=== PATIENT | male | born 1960 | race African-American/Black ===

== ENCOUNTER 2018-11-13 11:36 | Inpatient (IN) | payer OTHER ==
[2018-11-13] VITALS (10 sets, daily range): BP systolic 115–179; BP diastolic 72–107
[~2018-11-13] VITALS: Ht 180.3 cm; Wt 68.9 kg
[2018-11-13] MEDS ORDERED: DiphenhydrAMINE 50mg/ml Inj IVP ONE (11:45)
[2018-11-13] MEDS ORDERED: Morphine Sulfate 4mg/ml Inj (IV USE ONLY) IVP ONE (11:45)
--- NOTE | 2018-11-13 11:55 | NUR ---
ED Nurse Note: PT TO CT VIA MARIANO.
--- NOTE | 2018-11-13 12:05 | NUR ---
Note karoone in EDM - 11/13/18 at 1453 by [facility] ED Nurse Note: PT BACK FROM CT VIA [facility]. PT BROUGHT IN TO ER TODAY FROM HOME. AOX4. PT C/O NAUSEA AND MULTIPLE EPISODES OF VOMITING ALONG WITH GENERALIZED BODY ACHE X THIS MORNING ABOUT 1 HOUR PRIOR TO ARRIVAL. PT DENIES DIARRHEA. ACTIVE BOWEL SOUNDS IN ALL QUADRANTS, ABDOMEN NONDISTENDED AND NONTENDER TO PALPATION.
--- NOTE | 2018-11-13 12:05 | NUR ---
ED Nurse Note: PT BACK FROM CT VIA GURNEY. PT BROUGHT IN TO ER TODAY FROM HOME. AOX4. PT C/O NAUSEA AND MULTIPLE EPISODES OF VOMITING ALONG WITH GENERALIZED BODY ACHE X THIS MORNING ABOUT 1 HOUR PRIOR TO ARRIVAL. PT DENIES DIARRHEA. ACTIVE BOWEL SOUNDS IN ALL QUADRANTS, ABDOMEN NONDISTENDED AND NONTENDER TO PALPATION. BP ELEVATED AT BEDSIDE: 179/90 - DR. MARCELO AWARE. PT DENIES SOB OR CHEST PAIN.
--- NOTE | 2018-11-13 12:06 | Emergency Room Report ---
History of Present Illness General Chief Complaint: Nausea Source: Patient, EMS (Chaim Bryan DO) Present Illness HPI Patient presents with complaints of mid chest pain increased nausea Reports that he has history of prostate cancer and taking oral chemotherapy medication He has been on his medication for over the past 1 year however Patient feels lightheaded and dizzy Reports feeling weak Denies any headache or visual changes On reevaluation after patient had some symptomatic improvement he does not report that he gets IV infusions of chemotherapy as well last chemo was about 7 days ago (Chaim Bryan DO) Allergies: Coded Allergies: No Known Allergies (Unverified , 11/13/18) Patient History Past Medical History: see triage record Reviewed Nursing Documentation: PMH: Agreed; PSxH: Agreed (Chaim Bryan DO) Nursing Documentation-PMH Past Medical History: No History, Except For Hx Hypertension: Yes Hx Cancer: Yes - prostate (Chaim Bryan DO) Review of Systems All Other Systems: negative except mentioned in HPI (Chaim Bryan DO) Physical Exam Vital Signs Date Time Temp Pulse Resp B/P (MAP) Pulse Ox O2 Delivery O2 Flow Rate FiO2 11/13/18 11:16 97.5 88 20 170/100 (123) 97 Room Air Sp02 EP Interpretation: reviewed, normal General Appearance: moderate distress - Nauseated and pain Head: normocephalic, atraumatic Eyes: bilateral eye PERRL, bilateral eye EOMI ENT: hearing grossly normal, normal pharynx, no angioedema Neck: supple Respiratory: lungs clear, no retraction, no accessory muscle use Cardiovascular #1: regular rate, rhythm Gastrointestinal: non tender, soft Musculoskeletal: normal inspection Neurologic: alert, oriented x3, responsive Psychiatric: normal inspection Skin: no rash, palpation normal Lymphatic: no adenopathy (Chaim Bryan DO) Procedures Critical Care Time Critical Care Time 50 minutes for multiple re-evaluations critical presentation with critical findings concerning for cardiac and cardiac pulmonary arrest not including any procedural time (Chaim Bryan DO) Medical Decision Making Diagnostic Impression: Primary Impression: Hypertensive urgency, malignant Additional Impressions: Chemotherapy adverse reaction Qualified Codes: T45.1X5A - Adverse effect of antineoplastic and immunosuppressive drugs, initial encounter Elevated troponin ER Course Patient is a fairly complex patient with multiple differential to consideration including but not limited to cardiac cardiopulmonary and vascular emergencies Other differential such as chemo reaction also entertained Patient's EKG is abnormal with incomplete right bundle branch block nonspecific ST changes LVH findings troponin is mildly elevated at 0.154 Given the patient's description and comorbidities I felt discussion with interventional cardiology was warranted [facility] was contacted In discussion patient was requested to have repeat troponin Repeat EKG and further evaluation of abnormal findings Patient's troponin has slowly started to decrease therefore transfer to tertiary center will be held at this time Patient's x-ray shows some abnormalities as well and patient requires continued inpatient care Labs Test 11/13/18 11:45 11/13/18 12:10 11/13/18 13:34 White Blood Count 10.9 K/UL (4.8-10.8) Red Blood Count 3.17 M/UL (4.70-6.10) Hemoglobin 10.1 G/DL (14.2-18.0) Hematocrit 32.7 % (42.0-52.0) Mean Corpuscular Volume 103 FL (80-99) Mean Corpuscular Hemoglobin 31.9 PG (27.0-31.0) Mean Corpuscular Hemoglobin Concent 31.0 G/DL (32.0-36.0) Red Cell Distribution Width 13.9 % (11.6-14.8) Platelet Count 214 K/UL (150-450) Mean Platelet Volume 10.8 FL (6.5-10.1) Neutrophils (%) (Auto) 81.0 % (45.0-75.0) Lymphocytes (%) (Auto) 13.6 % (20.0-45.0) Monocytes (%) (Auto) 4.5 % (1.0-10.0) Eosinophils (%) (Auto) 0.3 % (0.0-3.0) Basophils (%) (Auto) 0.6 % (0.0-2.0) Sodium Level 141 MMOL/L (136-145) Potassium Level 4.1 MMOL/L (3.5-5.1) Chloride Level 105 MMOL/L (98-107) Carbon Dioxide Level 28 MMOL/L (21-32) Anion Gap 8 mmol/L (5-15) Blood Urea Nitrogen 25 mg/dL (7-18) Creatinine 1.2 MG/DL (0.55-1.30) Estimat Glomerular Filtration Rate > 60 mL/min (>60) Glucose Level 182 MG/DL (74-106) Calcium Level 9.1 MG/DL (8.5-10.1) Total Bilirubin 1.4 MG/DL (0.2-1.0) Direct Bilirubin 0.4 MG/DL (0.0-0.3) Aspartate Amino Transf (AST/SGOT) 43 U/L (15-37) Alanine Aminotransferase (ALT/SGPT) 42 U/L (12-78) Alkaline Phosphatase 144 U/L (46-116) Total Creatine Kinase 276 U/L (26-308) Creatine Kinase MB 2.8 NG/ML (0.0-3.6) Creatine Kinase MB Relative Index 1.0 Troponin I 0.154 ng/mL (0.000-0.056) Total Protein 7.7 G/DL (6.4-8.2) Albumin 4.1 G/DL (3.4-5.0) Globulin 3.6 g/dL Albumin/Globulin Ratio 1.1 (1.0-2.7) Lipase 170 U/L (73-393) Urine Color Yellow Urine Appearance Clear Urine pH 8 (4.5-8.0) Urine Specific [place] 1.010 (1.005-1.035) Urine Protein 3+ (NEGATIVE) Urine Glucose (UA) 2+ (NEGATIVE) Urine Ketones Negative (NEGATIVE) Urine Blood 2+ (NEGATIVE) Urine Nitrite Negative (NEGATIVE) Urine Bilirubin Negative (NEGATIVE) Urine Urobilinogen 4 MG/DL (0.0-1.0) Urine Leukocyte Esterase Negative (NEGATIVE) Urine RBC 2-4 /HPF (0 - 0) Urine WBC 0 /HPF (0 - 0) Urine Squamous Epithelial Cells Occasional /LPF Urine Bacteria Occasional /HPF (NONE) Urine Opiates Screen Negative (NEGATIVE) Urine Barbiturates Screen Negative (NEGATIVE) Phencyclidine (PCP) Screen Negative (NEGATIVE) Urine Amphetamines Screen Negative (NEGATIVE) Urine Benzodiazepines Screen Negative (NEGATIVE) Urine Cocaine Screen Negative (NEGATIVE) Urine Marijuana (THC) Screen Negative (NEGATIVE) (Chaim Bryan DO) ER Course Reevaluation 2:35 PM, patient feels better, no longer symptomatic, nausea significantly improved blood pressure trending down, repeat troponin unchanged Patient given aspirin. Spoke with Dr. Posadas at 3:15pm will admit patient to ICU (Edd Marte MD) EKG Diagnostic Results Rate: normal Rhythm: NSR ST Segments: other - LVH, incomplete bundle branch block, nonspecific ST changes (Chaim Bryan DO) Rhythm Strip Diag. Results EP Interpretation: yes Rate: 77 Rhythm: NSR, no PVC's, no ectopy (Chaim Bryan DO) Chest X-Ray Diagnostic Results Chest X-Ray Diagnostic Results : Chest X-Ray Ordered: Yes # of Views/Limited/Complete: 1 View Indication: Chest Pain EP Interpretation: Yes Interpretation: no consolidation, no effusion, other - Several areas of markings bilaterally there is also evidence of questionable previous rib fractures, Impression: Other - Several markings bilaterally question previous rib fractures, question metastatic disease, Electronically Signed by: Chaim Bryan DO (Chaim Bryan DO) CT/MRI/US Diagnostic Results CT/MRI/US Diagnostic Results : Impression CT head:nad (Chaim Bryan DO) Last Vital Signs Date Time Temp Pulse Resp B/P (MAP) Pulse Ox O2 Delivery O2 Flow Rate FiO2 11/13/18 11:16 97.5 88 20 170/100 (123) 97 Room Air Status: improved (Chaim Bryan DO) Disposition: ADMITTED INPATIENT Condition: Critical Chaim Bryan DO Nov 13, 2018 12:06 Edd Marte MD Nov 13, 2018 15:18
[2018-11-13 12:12] LABS: BASOPHILS % (AUTO) 0.6 % (0.0-2.0); EOSINOPHILS % (AUTO) 0.3 % (0.0-3.0); HEMATOCRIT 32.7 % (42.0-52.0); HEMOGLOBIN 10.1 G/DL (14.2-18.0); LYMPHOCYTES % (AUTO) 13.6 % (20.0-45.0); MEAN CORPUSCULAR VOLUME 103 FL (80-99); MONOCYTES % (AUTO) 4.5 % (1.0-10.0); PLATELET COUNT 214 K/UL (150-450); RED BLOOD COUNT 3.17 M/UL (4.70-6.10); RED CELL DISTRIBUTION WIDTH 13.9 % (11.6-14.8); WHITE BLOOD COUNT 10.9 K/UL (4.8-10.8)
--- NOTE | 2018-11-13 12:12 | Diagnostic Imaging Report ---
EXAM: CT Head Without Intravenous Contrast CLINICAL HISTORY: DIZZY TECHNIQUE: Axial computed tomography images of the head brain without intravenous contrast. CTDI is 70.38 mGy and DLP is 1354 mGy-cm. One or more of the following dose reduction techniques were used: automated exposure control, adjustment of the mA and or kV according to patient size, use of iterative reconstruction technique. COMPARISON: No relevant prior studies available. FINDINGS: Brain: No hemorrhage. No edema. Involutional changes with small vessel disease. Ventricles: No ventriculomegaly. Bones joints: No acute fracture. Soft tissues: Unremarkable. Sinuses: No acute sinusitis. Mastoid air cells: No mastoid effusion. IMPRESSION: No acute intracranial process.
--- NOTE | 2018-11-13 12:14 | NUR ---
ED Nurse Note: URINE COLLECTED AND SENT TO LAB.
[2018-11-13 12:20] LABS: ANION GAP 8 mmol/L (5-15); BLOOD UREA NITROGEN 25 mg/dL (7-18); CALCIUM 9.1 MG/DL (8.5-10.1); CARBON DIOXIDE 28 MMOL/L (21-32); CHLORIDE 105 MMOL/L (98-107); CREATININE 1.2 MG/DL (0.55-1.30); POTASSIUM 4.1 MMOL/L (3.5-5.1); SODIUM 141 MMOL/L (136-145)
[2018-11-13 12:33] LABS: ALANINE AMINOTRANSFERASE 42 U/L (12-78); ALBUMIN 4.1 G/DL (3.4-5.0); ALBUMIN/GLOBULIN RATIO 1.1 (1.0-2.7); ALKALINE PHOSPHATASE 144 U/L (46-116); ASPARTATE AMINO TRANSFERASE 43 U/L (15-37); BILIRUBIN,TOTAL 1.4 MG/DL (0.2-1.0); CKMB 2.8 NG/ML (0.0-3.6); CREATINE KINASE 276 U/L (26-308)
[2018-11-13 12:37] LABS: BILIRUBIN,DIRECT 0.4 MG/DL (0.0-0.3)
[2018-11-13] MEDS ORDERED: Nitroglycerin 2% oint pkt TOPIC ONE (12:45)
[2018-11-13 12:59] LABS: APPEARANCE,URINE CLEAR; BILIRUBIN, URINE NEGATIVE (NEGATIVE); GLUCOSE, URINE (UA) 2+ (NEGATIVE); KETONES,URINE NEGATIVE (NEGATIVE); LEUKOCYTE ESTERASE ,URINE NEGATIVE (NEGATIVE); NITRITE,URINE NEGATIVE (NEGATIVE); PH,URINE 8 (4.5-8.0); PROTEIN,URINE 3+ (NEGATIVE); UROBILINOGEN,URINE 4 MG/DL (0.0-1.0)
[2018-11-13 13:00] LABS: COLOR,URINE YELLOW
--- NOTE | 2018-11-13 14:54 | Diagnostic Imaging Report ---
Indication: Chest pain Comparison: None A single view chest radiograph was obtained. Findings: There are multiple nodular opacities bilaterally. Some of these are projected over the ribs and could be due to old rib fractures. Pulmonary nodules are not excluded and further evaluation is recommended. The heart is mildly enlarged. No pleural effusion demonstrated. IMPRESSION: Pulmonary nodules and/or old rib fractures bilaterally. Evaluation with CT is recommended [facility] has communicated the preliminary results to the Emergency Department. Their findings are largely concordant with this report.
--- NOTE | 2018-11-13 14:57 | NUR ---
HAND-OFF: REPORT GIVEN TO RAYMON ENG.
--- NOTE | 2018-11-13 15:00 | NUR ---
ER DISCHARGE NOTE: report received from Sravani Begum RN. pt is in bed , alert oriented x4. No acute distress is noted at this time.,
[2018-11-13] MEDS ORDERED: LISINOPRIL10 MG ORAL (15:12)
[2018-11-13] MEDS ORDERED: PREDNISONE5 M3 PO (15:12)
[2018-11-13] MEDS ORDERED: ZYTIGA250 MG ORAL (15:12)
[2018-11-13] MEDS ORDERED: Enalaprilat 2.5mg/2ml Inj IV PRN (15:15)
[2018-11-13] MEDS ORDERED: Morphine Sulfate 2mg/ml Inj(IV/IM USE ONLY) IVP PRN (15:15)
[2018-11-13] MEDS ORDERED: Miralax 17gm pkt ORAL PRN (15:15)
[2018-11-13] MEDS ORDERED: Albuterol/Ipratropium 3ml neb HHN PRN (15:15)
[2018-11-13] MEDS ORDERED: Nitroglycerin Subl 0.4mg tab SL PRN (15:15)
[2018-11-13] MEDS ORDERED: dilTIAZem HCl 25mg/5ml Inj IV PRN ×2 (15:15→17:15)
--- NOTE | 2018-11-13 15:30 | NUR ---
ER DISCHARGE NOTE: pt was BIBA via gurney to ICU bed H accompanied by RN and hearing aid technician while pt is on initor box. no acute distress is noted. Report given to RAYMON Morfin. belonging list signed.
--- NOTE | 2018-11-13 15:50 | NUR ---
NURSE NOTES: Received patient from [facility] from ED. Patient observed bedside to be AAO x 4. Patient was able to ambulate to the bed. Patient is speaks with clear sentences, makes needs known verbally and was able to give a detailed medical history. Upon observing patient, patient follows commands, is 5/5 on BUE and 5/5 BLE, pupils are PERRLA and 3 ml BL. Patient is breathing 98% on RA. Upon auscultation, breath sounds were slightly diminished at the bases however was without wheezes or rhonchi. Heart sounds are irregular irregular. Patient is being monitored on the hall monitor VS 162/99 HR 73 RR 16 SPO2 97%. Belly sounds are hypoactive. Patient is reporting that he is hungry. Patient has two PIVs, INES 20G and RAC 20G both flushed, patent, asymptomatic and saline locked. Patient is very independent with self positioning and using the urinal to void on his own. Patient has one area of concern with an instep ulcer that has a dressing that is dry and intact. Safety measures are in place with the bed locked in the lowest position, siderails up x 2 with call light within reach. Will continue to monitor and carry out MD plan of care.
--- NOTE | 2018-11-13 16:05 | NUR ---
NURSE NOTES: Dr Fenton has assessed patient bedside. has clarified orders. Also put in consult for Cardiology and Dr Mckeon will be seeing patient tonight. Per Dr Fenton, Dr Mckeon will be calling to update orders specifically re: EKG and Heparin Drip. Diet orders have been placed. Patient has been cleared to eat. Will carry out MD orders.
--- NOTE | 2018-11-13 16:20 | NUR ---
NURSE NOTES: Called Dietary to confirm orders have been rec'd. Dr Fenton has placed orders. LM. By 1700 if patient does not have try will follow up again to ensure that patient has a try.
--- NOTE | 2018-11-13 16:23 | History & Physical ---
History and Physical History & Physicial Dictated for Int Med Dr Quijano no. [id number]. ICU Raheem Fenton MD Nov 13, 2018 16:23
[2018-11-13] MEDS ORDERED: Heparin 25,000u/D5W 500ml 500 ML IV SCH (16:30)
[2018-11-13 16:37] LABS: CREATINE KINASE 274 U/L (26-308); PHOSPHORUS 3.4 MG/DL (2.5-4.9)
[2018-11-13 16:42] LABS: ALANINE AMINOTRANSFERASE 42 U/L (12-78); ALBUMIN 4.3 G/DL (3.4-5.0); ALBUMIN/GLOBULIN RATIO 1.2 (1.0-2.7); ALKALINE PHOSPHATASE 145 U/L (46-116); ANION GAP 11 mmol/L (5-15); ASPARTATE AMINO TRANSFERASE 42 U/L (15-37); BILIRUBIN,TOTAL 1.2 MG/DL (0.2-1.0); BLOOD UREA NITROGEN 23 mg/dL (7-18); CARBON DIOXIDE 26 MMOL/L (21-32); CHLORIDE 106 MMOL/L (98-107); CREATININE 1.1 MG/DL (0.55-1.30); POTASSIUM 4.9 MMOL/L (3.5-5.1); SODIUM 143 MMOL/L (136-145)
[2018-11-13 16:55] LABS: BILIRUBIN,DIRECT 0.3 MG/DL (0.0-0.3)
--- NOTE | 2018-11-13 17:00 | History and Physical Report ---
DATE OF ADMISSION: 11/13/2018 NOTE: INCOMPLETE DICTATION CHIEF COMPLAINT: The patient is a 58-year-old male, who presents with a chief complaint of intractable nausea and vomiting. HISTORY OF PRESENT ILLNESS: The patient has a history of stage IV prostate cancer. The patient is status post prostatectomy in June of 2017 and is currently on chemotherapy under the direction of . The patient states this morning he was at a laundry. The patient then walked 2 blocks to his house. The patient began to have shaking and sweats. The patient states he had unsteady gait. The patient had a near syncopal episode. The patient then began to experience intractable nausea and vomiting. Raheem Fenton M.D. DR: WILLIS JOB#: [id number] CC:
--- NOTE | 2018-11-13 17:05 | NUR ---
NURSE NOTES: Dr Mckeon called and advised that he will be coming tonight. Reviewed the chart and EKG. Heparin drip is to remain on hold. Telephone orders were given for meds and new parameters for rescue meds. Will carry out MD orders. Will continue to monitor.
--- NOTE | 2018-11-13 17:15 | History and Physical Report ---
DATE OF ADMISSION: 11/13/2018 CHIEF COMPLAINT: The patient is a 58-year-old male with a history of stage IV prostate cancer, who presents with a chief complaint of intractable nausea and vomiting. HISTORY OF PRESENT ILLNESS: The patient has a history of stage IV prostate cancer. The patient is status post prostatectomy and is currently undergoing chemotherapy under the direction of . The patient states this morning he was at the laundry. The patient walked approximately 2 blocks to home. The patient then began to experience the shakes. The patient also had diaphoresis. The patient then became unsteady on his feet. The patient had a near syncopal episode and sat down. The patient then began to experience intractable nausea vomiting. The patient presented to [facility]. The patient was found to have blood pressure of 170/100. The patient also had elevated troponin level. The patient is admitted with hypertensive urgency and elevated troponin to rule out acute coronary syndrome. REVIEW OF SYSTEMS: CONSTITUTIONAL: The patient denies weight loss or weight gain. The patient denies fevers and chills. HEENT: The patient denies ear or throat pain. The patient denies headache. CARDIOVASCULAR: The patient denies palpitations or chest pain. CHEST: The patient denies wheeze or shortness of breath. ABDOMINAL: The patient complains of intractable nausea and vomiting as above. The patient denies diarrhea or constipation. GENITOURINARY: The patient denies dysuria or increased frequency of urination. NEUROMUSCULAR: The patient complains of vertigo as above. The patient denies seizures or generalized weakness. PAST MEDICAL HISTORY: Significant for, 1. Stage IV prostate cancer, status post prostatectomy and currently undergoing chemotherapy. 2. Right foot ulcer which is followed by Podiatry, Dr. Arthur Javed. 3. Gastroesophageal reflux disease. 4. Hypertension. PAST SURGICAL HISTORY: Significant for transurethral resection of the prostate in June of 2017. CURRENT MEDICATIONS: 1. Lisinopril 10 mg p.o. daily. 2. Zytiga 250 mg p.o. daily. 3. Eligard 22.5 mg intravenously q. monthly. 4. Lupron of an unknown dose intramuscularly every monthly. 5. Omeprazole 20 mg p.o. daily. ALLERGIES: No known drug allergies. SOCIAL HISTORY: The patient is single and is disabled. The patient denies tobacco use having quit 20 years previously. The patient denies alcohol use. PHYSICAL EXAMINATION: VITAL SIGNS: Temperature 97.5, respirations 20, pulse 80, blood pressure 170/100, and oxygen saturation 97% on room air. GENERAL: The patient is a well-developed and well-nourished male, in no apparent distress. HEENT: Eyes, pupils are equal and responsive to light and accommodation. Extraocular movements are intact. NECK: Supple without lymphadenopathy. CHEST: Lungs are clear to auscultation bilaterally without wheezes or rales. CARDIOVASCULAR: Regular rhythm and rate. S1, S2 are normal without murmurs, rubs, or gallops. ABDOMEN: Soft, diffusely tender with decreased bowel sounds. No evidence of hepatosplenomegaly. Currently, no rebound or guarding noted. EXTREMITIES: Negative for clubbing, cyanosis, or edema. RECTAL/GENITAL: Refused. NEUROLOGIC: Cranial nerves II through XII are grossly intact without focal deficits. Motor strength is 5/5 bilaterally. Deep tendon reflexes are 2+ plantar. LABORATORY STUDIES: WBC 10.9, hemoglobin 10.1, hematocrit 32.7, and platelets 213,000. Sodium 141, potassium 4.1, chloride 105, CO2 28, BUN 25, creatinine 1.2, and glucose 182. Total bilirubin elevated at 1.4. Direct bilirubin elevated at 0.4. AST elevated at 43 and alkaline phosphatase elevated at 144. Troponin elevated at 0.154. An EKG demonstrated normal sinus rhythm at approximately 99 beats per minute. There were T-wave depressions noted in leads 1, aVL, V1, and V2. A chest x-ray is reported as no acute disease. A CT scan of the brain is reported as no acute intracranial process. ASSESSMENT: This is a 58-year-old male. 1. Intractable nausea and vomiting. 2. Vertigo. 3. Hypertensive urgency. 4. Elevated troponin. 5. Stage IV prostate cancer. 6. Gastroesophageal reflux. TREATMENT: 1. Intractable nausea and vomiting. The patient is currently receiving intravenous Zofran. Nausea and vomiting may be secondary to chemotherapy versus gastroenteritis. A Gastroenterology consultation has been obtained with Dr. Tc Ocampo. 2. Vertigo. This probably secondary to nausea and vomiting as above. 3. Hypertensive urgency. Continue lisinopril as above. A Cardiology consultation has been obtained with Dr. Richard Umana. 4. Elevated troponin. As above, a Cardiology consultation has been obtained with Dr. Richard Umana. We will follow recommendations of Cardiology. 5. Prostate cancer. The patient is currently followed as an outpatient by . The patient is currently on Eligard intravenously q. monthly and Lupron injections q.3 months. 6. Gastroesophageal reflux disease. The patient has been started on intravenous Protonix. Raheem Fenton M.D. DR: WILLIS JOB#: [id number] CC:
--- NOTE | 2018-11-13 19:42 | NUR ---
NURSE NOTES: Received report from RAYMON Morfin. Patient is alert and oriented x4. No acute distress/SOB noted. Patient denies any pain/discomfort at this time. SR /BBB 60-70s on the monitor. BP 115/75 on monitor. He is on room air. Heparin drip has been held per Dr. Umana. Will follow up with Dr. Umana. Call light place in easy reach. Will continue plan of care.
[2018-11-13] MEDS: Atorvastatin 80mg tab ORAL SCH (21:03)
--- NOTE | 2018-11-13 21:20 | NUR ---
NURSE NOTES: All due medication given. Changed linens.
[2018-11-13 21:41] LABS: ALANINE AMINOTRANSFERASE 36 U/L (12-78); ALBUMIN 3.5 G/DL (3.4-5.0); ALBUMIN/GLOBULIN RATIO 1.1 (1.0-2.7); ALKALINE PHOSPHATASE 124 U/L (46-116); ANION GAP 8 mmol/L (5-15); ASPARTATE AMINO TRANSFERASE 33 U/L (15-37); BILIRUBIN,TOTAL 0.8 MG/DL (0.2-1.0); BLOOD UREA NITROGEN 23 mg/dL (7-18); CALCIUM 8.6 MG/DL (8.5-10.1); CARBON DIOXIDE 28 MMOL/L (21-32); CHLORIDE 108 MMOL/L (98-107); CREATININE 1.2 MG/DL (0.55-1.30); SODIUM 144 MMOL/L (136-145)
--- NOTE | 2018-11-13 23:00 | NUR ---
NURSE NOTES: Patient void x1. Yellow color urine 150ml noted.
[2018-11-14] VITALS (24 sets, daily range): BP systolic 116–169; BP diastolic 80–112
--- NOTE | 2018-11-14 01:00 | NUR ---
NURSE NOTES: Changed right medial foot wound dressing.
--- NOTE | 2018-11-14 02:05 | NUR ---
NURSE NOTES: Patient is on room air. No distress/SOB noted. Denies any pain/discomfort at this time.
--- NOTE | 2018-11-14 04:02 | NUR ---
NURSE NOTES: Patient asleep. No acute distress/SOB noted.
[2018-11-14 04:35] LABS: BASOPHILS % (AUTO) 0.9 % (0.0-2.0); HEMOGLOBIN 8.8 G/DL (14.2-18.0); LYMPHOCYTES % (AUTO) 24.3 % (20.0-45.0); MEAN CORPUSCULAR VOLUME 104 FL (80-99); MONOCYTES % (AUTO) 6.5 % (1.0-10.0); NEUTROPHILS % (AUTO) 66.3 % (45.0-75.0); PLATELET COUNT 141 K/UL (150-450); RED CELL DISTRIBUTION WIDTH 13.6 % (11.6-14.8); WHITE BLOOD COUNT 6.4 K/UL (4.8-10.8)
--- NOTE | 2018-11-14 05:17 | NUR ---
NURSE NOTES: Patient c/o headache at this time, Tylenol 650mg given at this time. Will continue to monitor
[2018-11-14 05:24] LABS: CHOLESTEROL 182 MG/DL (< 200); HDL CHOLESTEROL 65 MG/DL (40-60); TRIGLYCERIDES 141 MG/DL (30-150)
[2018-11-14 05:26] LABS: ANION GAP 8 mmol/L (5-15); BLOOD UREA NITROGEN 21 mg/dL (7-18); CALCIUM 8.8 MG/DL (8.5-10.1); CARBON DIOXIDE 28 MMOL/L (21-32); CHLORIDE 108 MMOL/L (98-107); CREATININE 1.2 MG/DL (0.55-1.30); POTASSIUM 4.2 MMOL/L (3.5-5.1); SODIUM 144 MMOL/L (136-145)
--- NOTE | 2018-11-14 05:43 | NUR ---
NURSE NOTES: patient called again and c/o head ache 10/08. Morphine offered for pain . 2 mg morphine given at this time.
--- NOTE | 2018-11-14 05:49 | NUR ---
NURSE NOTES: After morphine administration patient called and c/o nausea. Zofran 4 mg given. Bedside teaching done about the importance of using call light and not getting out of bed.
--- NOTE | 2018-11-14 07:36 | NUR ---
HAND-OFF: Report given to RAYMON No. Endorsed plan of care.
--- NOTE | 2018-11-14 07:38 | NUR ---
NURSE NOTES: Received report from Tyrell ENNIS. Patient resting in bed. pt has removed gown, states he gets hot flashes and can not keep it on. A/AO x 4. Patient able to make needs known. Patient follows commands, very talkative, mildly anxious. Bilateral PERRLA. Patient's RR 15 SPO2 96% on 2L NC. Upon auscultation, breath sounds diminished at bases. No wheeze or rhonchi or respiratory distress noted. Heart sounds are irregularly irregular, with turbulence. pt states has endocarditis. Patient on the loss prevention detective VS 156/101 HR 63. Abdomen firm,round, non tender. Bowl sounds are hypoactive. Last stated BM 11/13. Patient has two PIVs: INES 20G and RAC 20G, patent and saline locked. Patient is able to reposition self. Urinal at bedside, voids light ben urine. skin- see assessment. Optifoam on foot dry and intact. Safety measures are in place with the bed locked in the lowest position, side rails up x 2 with call light within reach. Education provided on S.E of medications. Will continue to monitor and implement plan of care.
--- NOTE | 2018-11-14 08:04 | NUR ---
NURSE NOTES: CONTACTED MD KNOWLES REGARDING PT REQUEST FOR HOME MEDS, PREDNISONE AND ZYTIGA. STATES HE TAKES 4TABS BY MOUTH DAILY AND PREDNISONE TWICE A DAY. MISSED A DOSE LAST NIGHT AND WANTS TO KEEP MEDICATION SCHEDULE. RECEIVED ORDER TO CONTINUE MEDS. CALLED PHARMACY TO UPLOAD MEDICATION.
--- NOTE | 2018-11-14 08:35 | NUR ---
NURSE NOTES: PT REFUSED LOPRESSOR THIS AM , STATES MAKES ME FEEL WEIRD, BUT WILL TAKE OLIVIA INHIBITOR LISINOPRIL. PT TOOK MEDS BY MOUTH, NO DISTRESS NOTED AT THIS TIME.
[2018-11-14] MEDS: Aspirin Baby 81mg ORAL SCH (08:43)
[2018-11-14] MEDS: Metoprolol 25mg tab ORAL SCH ×3 (08:45→20:44)
--- NOTE | 2018-11-14 08:53 | NUR ---
NURSE NOTES: US FOR 2D ECHO FOR. PT. PT IN NO ACUTE DISTRESS.
[2018-11-14] MEDS ORDERED: Lisinopril 2.5mg tab ORAL SCH (09:00)
--- NOTE | 2018-11-14 09:45 | NUR ---
RADIOLOGY DEPT., LATE ENTRY. CHEST X-RAY DONE 11/13 @ 11:40 hrs.-P.DYE
[2018-11-14] MEDS: ABIRATERONE 250 MG ORAL SCH (10:27)
--- NOTE | 2018-11-14 10:40 | NUR ---
NURSE NOTES: d/t increase in bp 167/108,m pt willing to take Lopressor 25mg, po.
--- NOTE | 2018-11-14 11:29 | GI Initial Consult Note ---
History of Present Illness General Date patient seen: Nov 14, 2018 Time patient seen: 11:24 Reason for Hospitalization: Nausea Referring physician: NORRIS BUSH Reason for Consultation: N/V Present Illness HPI Patient presents with complaints of mid chest pain increased nausea Reports that he has history of prostate cancer and taking oral chemotherapy medication He has been on his medication for over the past 1 year however Patient feels lightheaded and dizzy Reports feeling weak Denies any headache or visual changes On reevaluation after patient had some symptomatic improvement he does not report that he gets IV infusions of chemotherapy as well last chemo was about 7 days ago GI consulted for reported nausea vomiting. Patient seen, awake alert oriented x4 no apparent distress. At time of evaluation, there is no active signs or symptoms of nausea vomiting. The patient did report some nausea and previous vomiting. He denied any coffee grounds or hematemesis. The patient denies any history of endoscopy or colonoscopy. Patient stated he he is currently undergoing chemotherapy for his stage IV prostate cancer. The patient presented to the ER with systolic blood pressure 179, troponin level 0.115, hemoglobin 8.8, hematocrit 28.0, no leukocytosis. Home Meds Reported Medications Prednisone (PREDNISONE) 5 Mg Tablet, 5 MG PO, TAB 11/13/18 Abiraterone Acetate (ZYTIGA) 250 Mg Tablet, 250 MG ORAL, TAB 11/13/18 Lisinopril* (LISINOPRIL*) 10 Mg Tablet, 10 MG ORAL DAILY, TAB 11/13/18 Med list reviewed/reconciled: Yes Allergies: Coded Allergies: No Known Allergies (Unverified , 11/13/18) Patient History Limited by: medical condition History Provided By: Patient PMH Narrative Past Medical History: No History, Except For Hx Hypertension: Yes Hx Cancer: Yes - prostate Social History: Denies: smoking, alcohol use, drug use, other Review of Systems All Other Systems: negative except mentioned in HPI Physical Exam Vital Signs Date Time Temp Pulse Resp B/P (MAP) Pulse Ox O2 Delivery O2 Flow Rate FiO2 11/13/18 11:16 97.5 88 20 170/100 (123) 97 Room Air 11/13/18 20:35 21 11/14/18 08:00 2.0 Sp02 EP Interpretation: reviewed, normal Labs Laboratory Tests Test 11/13/18 11:45 11/13/18 12:10 11/13/18 13:34 11/13/18 21:00 White Blood Count 10.9 K/UL (4.8-10.8) H Red Blood Count 3.17 M/UL (4.70-6.10) L Hemoglobin 10.1 G/DL (14.2-18.0) L Hematocrit 32.7 % (42.0-52.0) L Mean Corpuscular Volume 103 FL (80-99) H Mean Corpuscular Hemoglobin 31.9 PG (27.0-31.0) H Mean Corpuscular Hemoglobin Concent 31.0 G/DL (32.0-36.0) L Red Cell Distribution Width 13.9 % (11.6-14.8) Platelet Count 214 K/UL (150-450) Mean Platelet Volume 10.8 FL (6.5-10.1) H Neutrophils (%) (Auto) 81.0 % (45.0-75.0) H Lymphocytes (%) (Auto) 13.6 % (20.0-45.0) L Monocytes (%) (Auto) 4.5 % (1.0-10.0) Eosinophils (%) (Auto) 0.3 % (0.0-3.0) Basophils (%) (Auto) 0.6 % (0.0-2.0) Sodium Level 141 MMOL/L (136-145) 143 MMOL/L (136-145) 144 MMOL/L (136-145) Potassium Level 4.1 MMOL/L (3.5-5.1) 4.9 MMOL/L (3.5-5.1) 4.0 MMOL/L (3.5-5.1) Chloride Level 105 MMOL/L (98-107) 106 MMOL/L (98-107) 108 MMOL/L (98-107) H Carbon Dioxide Level 28 MMOL/L (21-32) 26 MMOL/L (21-32) 28 MMOL/L (21-32) Anion Gap 8 mmol/L (5-15) 11 mmol/L (5-15) 8 mmol/L (5-15) Blood Urea Nitrogen 25 mg/dL (7-18) H 23 mg/dL (7-18) H 23 mg/dL (7-18) H Creatinine 1.2 MG/DL (0.55-1.30) 1.1 MG/DL (0.55-1.30) 1.2 MG/DL (0.55-1.30) Estimat Glomerular Filtration Rate > 60 mL/min (>60) > 60 mL/min (>60) > 60 mL/min (>60) Glucose Level 182 MG/DL (74-106) H 123 MG/DL (74-106) H 115 MG/DL (74-106) H Calcium Level 9.1 MG/DL (8.5-10.1) 9.0 MG/DL (8.5-10.1) 8.6 MG/DL (8.5-10.1) Total Bilirubin 1.4 MG/DL (0.2-1.0) H 1.2 MG/DL (0.2-1.0) H 0.8 MG/DL (0.2-1.0) Direct Bilirubin 0.4 MG/DL (0.0-0.3) H 0.3 MG/DL (0.0-0.3) Aspartate Amino Transf (AST/SGOT) 43 U/L (15-37) H 42 U/L (15-37) H 33 U/L (15-37) Alanine Aminotransferase (ALT/SGPT) 42 U/L (12-78) 42 U/L (12-78) 36 U/L (12-78) Alkaline Phosphatase 144 U/L (46-116) H 145 U/L (46-116) H 124 U/L (46-116) H Total Creatine Kinase 276 U/L (26-308) 274 U/L (26-308) Creatine Kinase MB 2.8 NG/ML (0.0-3.6) Creatine Kinase MB Relative Index 1.0 Troponin I 0.154 ng/mL (0.000-0.056) 0.150 ng/mL (0.000-0.056) 0.129 ng/mL (0.000-0.056) Total Protein 7.7 G/DL (6.4-8.2) 8.0 G/DL (6.4-8.2) 6.7 G/DL (6.4-8.2) Albumin 4.1 G/DL (3.4-5.0) 4.3 G/DL (3.4-5.0) 3.5 G/DL (3.4-5.0) Globulin 3.6 g/dL 3.7 g/dL 3.2 g/dL Albumin/Globulin Ratio 1.1 (1.0-2.7) 1.2 (1.0-2.7) 1.1 (1.0-2.7) Lipase 170 U/L (73-393) Urine Color Yellow Urine Appearance Clear Urine pH 8 (4.5-8.0) Urine Specific [place] 1.010 (1.005-1.035) Urine Protein 3+ (NEGATIVE) H Urine Glucose (UA) 2+ (NEGATIVE) H Urine Ketones Negative (NEGATIVE) Urine Blood 2+ (NEGATIVE) H Urine Nitrite Negative (NEGATIVE) Urine Bilirubin Negative (NEGATIVE) Urine Urobilinogen 4 MG/DL (0.0-1.0) H Urine Leukocyte Esterase Negative (NEGATIVE) Urine RBC 2-4 /HPF (0 - 0) H Urine WBC 0 /HPF (0 - 0) Urine Squamous Epithelial Cells Occasional /LPF Urine Bacteria Occasional /HPF (NONE) Urine Opiates Screen Negative (NEGATIVE) Urine Barbiturates Screen Negative (NEGATIVE) Phencyclidine (PCP) Screen Negative (NEGATIVE) Urine Amphetamines Screen Negative (NEGATIVE) Urine Benzodiazepines Screen Negative (NEGATIVE) Urine Cocaine Screen Negative (NEGATIVE) Urine Marijuana (THC) Screen Negative (NEGATIVE) Activated Partial Thromboplast Time 21 SEC (23-33) L Uric Acid 3.3 MG/DL (2.6-7.2) Phosphorus Level 3.4 MG/DL (2.5-4.9) Magnesium Level 1.7 MG/DL (1.8-2.4) L Test 11/14/18 03:45 White Blood Count 6.4 K/UL (4.8-10.8) Red Blood Count 2.70 M/UL (4.70-6.10) L Hemoglobin 8.8 G/DL (14.2-18.0) L Hematocrit 28.0 % (42.0-52.0) L Mean Corpuscular Volume 104 FL (80-99) H Mean Corpuscular Hemoglobin 32.7 PG (27.0-31.0) H Mean Corpuscular Hemoglobin Concent 31.5 G/DL (32.0-36.0) L Red Cell Distribution Width 13.6 % (11.6-14.8) Platelet Count 141 K/UL (150-450) L Mean Platelet Volume 10.5 FL (6.5-10.1) H Neutrophils (%) (Auto) 66.3 % (45.0-75.0) Lymphocytes (%) (Auto) 24.3 % (20.0-45.0) Monocytes (%) (Auto) 6.5 % (1.0-10.0) Eosinophils (%) (Auto) 2.0 % (0.0-3.0) Basophils (%) (Auto) 0.9 % (0.0-2.0) Prothrombin Time 10.4 SEC (9.30-11.50) Prothromb Time International Ratio 1.0 (0.9-1.1) Activated Partial Thromboplast Time 23 SEC (23-33) Sodium Level 144 MMOL/L (136-145) Potassium Level 4.2 MMOL/L (3.5-5.1) Chloride Level 108 MMOL/L (98-107) H Carbon Dioxide Level 28 MMOL/L (21-32) Anion Gap 8 mmol/L (5-15) Blood Urea Nitrogen 21 mg/dL (7-18) H Creatinine 1.2 MG/DL (0.55-1.30) Estimat Glomerular Filtration Rate > 60 mL/min (>60) Glucose Level 105 MG/DL (74-106) Calcium Level 8.8 MG/DL (8.5-10.1) Troponin I 0.115 ng/mL (0.000-0.056) C-Reactive Protein, Quantitative < 0.4 mg/dL (0.00-0.90) Triglycerides Level 141 MG/DL (30-150) Cholesterol Level 182 MG/DL (< 200) LDL Cholesterol 90 mg/dL (<100) HDL Cholesterol 65 MG/DL (40-60) H Cholesterol/HDL Ratio 2.8 (3.3-4.4) L Thyroid Stimulating Hormone (TSH) 0.528 uiU/mL (0.358-3.740) General Appearance: well appearing, no apparent distress, alert Head: normocephalic EENT: PERRL/EOMI, normal ENT inspection Neck: supple Respiratory: normal breath sounds, no respiratory distress Cardiovascular: normal rate Gastrointestinal: normal inspection, non tender, soft, normal bowel sounds, non -distended Rectal: deferred Genitourinary: deferred Musculoskeletal: normal inspection, back normal Neurologic: normal inspection, alert, oriented x3, responsive Psychiatric: normal inspection, judgement/insight normal, memory normal Skin: normal inspection, normal color, no rash, warm/dry, palpation normal, well hydrated Lymphatic: normal inspection, no adenopathy Current Medications Current Medications Medications (Trade) Dose Ordered Sig/Pancho Route PRN Reason Start Time Stop Time Status Last Admin Dose Admin Acetaminophen (Tylenol) 650 mg Q4H PRN ORAL FEVER 11/13/18 15:15 12/13/18 15:14 11/14/18 05:17 Albuterol/ Ipratropium (Albuterol/ Ipratropium) 3 ml Q4H PRN HHN Shortness of Breath 11/13/18 15:15 11/18/18 15:14 Aspirin (ASA) 162 mg DAILY ORAL 11/14/18 09:00 12/14/18 08:59 11/14/18 08:43 Atorvastatin Calcium (Lipitor) 80 mg BEDTIME ORAL 11/13/18 21:00 12/13/18 20:59 11/13/18 21:03 Diltiazem HCl (Cardizem) 10 mg Q1H PRN IV heart rate more than 160 11/13/18 17:15 12/13/18 15:14 Enalaprilat (Vasotec) 2.5 mg Q6H PRN IV sbp more than 160 11/13/18 15:15 12/13/18 15:14 Lisinopril (Zestril) 5 mg DAILY ORAL 11/14/18 09:00 12/14/18 08:59 11/14/18 08:45 Metoprolol Tartrate (Lopressor) 25 mg Q12HR ORAL 11/14/18 09:00 12/14/18 08:59 11/14/18 10:42 Morphine Sulfate (Morphine Sulfate) 2 mg Q4H PRN IVP severe Pain (Pain Scale 7-10) 11/13/18 15:15 11/20/18 15:14 11/14/18 05:43 Nitroglycerin (Ntg) 0.4 mg Q5M PRN SL Prn Chest Pain 11/13/18 15:15 12/13/18 15:14 Ondansetron HCl (Zofran) 4 mg Q6H PRN IVP Nausea & Vomiting 11/13/18 15:15 12/13/18 15:14 11/14/18 05:49 Pantoprazole (Protonix) 40 mg DAILY ORAL 11/14/18 09:00 12/14/18 08:59 11/14/18 08:43 Patient Own Medication (Patient's Own Med) 4 ea DAILY ORAL 11/14/18 10:00 12/14/18 09:59 11/14/18 10:27 Polyethylene Glycol (Miralax) 17 gm DAILYPRN PRN ORAL Constipation 11/13/18 15:15 12/13/18 15:14 Prednisone (predniSONE) 5 mg BID ORAL 11/14/18 09:00 12/14/18 08:59 11/14/18 08:43 Temazepam (Restoril) 15 mg HSPRN PRN ORAL Insomnia 11/13/18 15:15 11/20/18 15:14 GI: Plan Problems: (1) Chemotherapy adverse reaction (2) Elevated troponin (3) Hypertensive urgency, malignant (4) Nausea & vomiting Plan Nausea vomiting most likely due to hypertensive crisis versus chemo drug induced We will consider endoscopy if patient has persistent nausea and vomiting Continue Zofran as needed, add Reglan as needed for persistent vomiting anemia work up OB stool r/o GI bleed monitor H&H, prn transfusions bowel regimen ppi fu labs Advance diet as tolerated Follow-up cardiac recommendations Discussed with Dr. Ocampo. Thank you for this patient referral, we will follow. Janeen Del Toro NP Nov 14, 2018 11:29
--- NOTE | 2018-11-14 11:58 | Cardiology Progress Note ---
Assessment/Plan Assessment/Plan The patient is seen and examined, full consult note is dictated. Objective Last 24 Hour Vital Signs Date Time Temp Pulse Resp B/P (MAP) Pulse Ox O2 Delivery O2 Flow Rate FiO2 11/14/18 10:42 62 167/108 11/14/18 10:08 97 Nasal Cannula 2.0 28 11/14/18 10:00 65 15 169/112 (131) 97 11/14/18 09:00 59 12 159/109 (126) 97 11/14/18 08:45 139/96 11/14/18 08:00 60 11/14/18 08:00 Nasal Cannula 2.0 11/14/18 08:00 98.6 63 12 132/92 (105) 97 11/14/18 07:00 58 15 156/101 (119) 96 11/14/18 06:00 55 16 151/93 (112) 96 11/14/18 05:00 66 16 154/97 (116) 95 11/14/18 04:00 60 11/14/18 04:00 98.3 60 13 136/96 (109) 97 11/14/18 04:00 Room Air 11/14/18 03:00 61 16 116/85 (95) 94 11/14/18 02:00 64 18 120/81 (94) 95 11/14/18 01:00 60 15 121/88 (99) 95 11/14/18 00:00 58 11/14/18 00:00 Room Air 11/14/18 00:00 98.2 62 17 122/80 (94) 93 11/13/18 23:00 57 19 120/83 (95) 95 11/13/18 22:00 64 11 117/87 (97) 96 11/13/18 21:00 75 18 131/83 (99) 95 11/13/18 20:35 95 Room Air 21 11/13/18 20:00 Room Air 11/13/18 20:00 63 11/13/18 20:00 98.6 71 19 116/72 (87) 94 11/13/18 19:00 71 13 115/75 (88) 94 11/13/18 18:00 83 17 142/102 (115) 97 11/13/18 17:00 89 17 147/89 (108) 95 11/13/18 16:00 98.1 71 17 139/97 (111) 96 11/13/18 15:40 Room Air 11/13/18 15:30 98.4 69 15 169/105 98 Room Air 11/13/18 14:44 98.1 104 14 138/107 97 Room Air 11/13/18 12:42 177/102 11/13/18 12:12 98.0 100 15 179/90 96 Room Air Intake and Output 11/13/18 11/14/18 19:00 07:00 Intake Total 480 ml Output Total 650 ml Balance 480 ml -650 ml Intake Oral 480 ml Output Urine Total 650 ml # Voids 1 3 Laboratory Tests Test 11/13/18 12:10 11/13/18 13:34 11/13/18 21:00 11/14/18 03:45 Urine Color Yellow Urine Appearance Clear Urine pH 8 (4.5-8.0) Urine Specific [place] 1.010 (1.005-1.035) Urine Protein 3+ (NEGATIVE) H Urine Glucose (UA) 2+ (NEGATIVE) H Urine Ketones Negative (NEGATIVE) Urine Blood 2+ (NEGATIVE) H Urine Nitrite Negative (NEGATIVE) Urine Bilirubin Negative (NEGATIVE) Urine Urobilinogen 4 MG/DL (0.0-1.0) H Urine Leukocyte Esterase Negative (NEGATIVE) Urine RBC 2-4 /HPF (0 - 0) H Urine WBC 0 /HPF (0 - 0) Urine Squamous Epithelial Cells Occasional /LPF Urine Bacteria Occasional /HPF (NONE) Urine Opiates Screen Negative (NEGATIVE) Urine Barbiturates Screen Negative (NEGATIVE) Phencyclidine (PCP) Screen Negative (NEGATIVE) Urine Amphetamines Screen Negative (NEGATIVE) Urine Benzodiazepines Screen Negative (NEGATIVE) Urine Cocaine Screen Negative (NEGATIVE) Urine Marijuana (THC) Screen Negative (NEGATIVE) Activated Partial Thromboplast Time 21 SEC (23-33) L 23 SEC (23-33) Sodium Level 143 MMOL/L (136-145) 144 MMOL/L (136-145) 144 MMOL/L (136-145) Potassium Level 4.9 MMOL/L (3.5-5.1) 4.0 MMOL/L (3.5-5.1) 4.2 MMOL/L (3.5-5.1) Chloride Level 106 MMOL/L (98-107) 108 MMOL/L (98-107) H 108 MMOL/L (98-107) H Carbon Dioxide Level 26 MMOL/L (21-32) 28 MMOL/L (21-32) 28 MMOL/L (21-32) Anion Gap 11 mmol/L (5-15) 8 mmol/L (5-15) 8 mmol/L (5-15) Blood Urea Nitrogen 23 mg/dL (7-18) H 23 mg/dL (7-18) H 21 mg/dL (7-18) H Creatinine 1.1 MG/DL (0.55-1.30) 1.2 MG/DL (0.55-1.30) 1.2 MG/DL (0.55-1.30) Estimat Glomerular Filtration Rate > 60 mL/min (>60) > 60 mL/min (>60) > 60 mL/min (>60) Glucose Level 123 MG/DL (74-106) H 115 MG/DL (74-106) H 105 MG/DL (74-106) Uric Acid 3.3 MG/DL (2.6-7.2) Calcium Level 9.0 MG/DL (8.5-10.1) 8.6 MG/DL (8.5-10.1) 8.8 MG/DL (8.5-10.1) Phosphorus Level 3.4 MG/DL (2.5-4.9) Magnesium Level 1.7 MG/DL (1.8-2.4) L Total Bilirubin 1.2 MG/DL (0.2-1.0) H 0.8 MG/DL (0.2-1.0) Direct Bilirubin 0.3 MG/DL (0.0-0.3) Aspartate Amino Transf (AST/SGOT) 42 U/L (15-37) H 33 U/L (15-37) Alanine Aminotransferase (ALT/SGPT) 42 U/L (12-78) 36 U/L (12-78) Alkaline Phosphatase 145 U/L (46-116) H 124 U/L (46-116) H Total Creatine Kinase 274 U/L (26-308) Troponin I 0.150 ng/mL (0.000-0.056) 0.129 ng/mL (0.000-0.056) 0.115 ng/mL (0.000-0.056) Total Protein 8.0 G/DL (6.4-8.2) 6.7 G/DL (6.4-8.2) Albumin 4.3 G/DL (3.4-5.0) 3.5 G/DL (3.4-5.0) Globulin 3.7 g/dL 3.2 g/dL Albumin/Globulin Ratio 1.2 (1.0-2.7) 1.1 (1.0-2.7) White Blood Count 6.4 K/UL (4.8-10.8) Red Blood Count 2.70 M/UL (4.70-6.10) L Hemoglobin 8.8 G/DL (14.2-18.0) L Hematocrit 28.0 % (42.0-52.0) L Mean Corpuscular Volume 104 FL (80-99) H Mean Corpuscular Hemoglobin 32.7 PG (27.0-31.0) H Mean Corpuscular Hemoglobin Concent 31.5 G/DL (32.0-36.0) L Red Cell Distribution Width 13.6 % (11.6-14.8) Platelet Count 141 K/UL (150-450) L Mean Platelet Volume 10.5 FL (6.5-10.1) H Neutrophils (%) (Auto) 66.3 % (45.0-75.0) Lymphocytes (%) (Auto) 24.3 % (20.0-45.0) Monocytes (%) (Auto) 6.5 % (1.0-10.0) Eosinophils (%) (Auto) 2.0 % (0.0-3.0) Basophils (%) (Auto) 0.9 % (0.0-2.0) Prothrombin Time 10.4 SEC (9.30-11.50) Prothromb Time International Ratio 1.0 (0.9-1.1) C-Reactive Protein, Quantitative < 0.4 mg/dL (0.00-0.90) Triglycerides Level 141 MG/DL (30-150) Cholesterol Level 182 MG/DL (< 200) LDL Cholesterol 90 mg/dL (<100) HDL Cholesterol 65 MG/DL (40-60) H Cholesterol/HDL Ratio 2.8 (3.3-4.4) L Thyroid Stimulating Hormone (TSH) 0.528 uiU/mL (0.358-3.740) Dong,Richard MD Nov 14, 2018 11:58
--- NOTE | 2018-11-14 12:00 | NUR ---
NURSE NOTES: Patient awake in bed. A/AO x 4. Patient able to make needs known. Bilateral PERRLA. Patient's RR 13 SPO2 99% on 2L NC. No respiratory distress noted. Patient on the manager cardiac cath VS 153/95 HR 64. Abdomen firm,round, non tender. Bowl sounds are hypoactive. Patient PIVs: INES 20G and RAC 20G, patent and saline locked. Patient is able to reposition self. Urinal at bedside, voids light ben urine. Optifoam on foot dry and intact. Safety measures are in place with the bed locked in the lowest position, side rails up x 2 with call light within reach. Will continue to monitor pt and implement plan of care.
--- NOTE | 2018-11-14 12:04 | NUR ---
NURSE NOTES: MD LUCIO HERE TO SEE PT. PT HAS NO C/O CHEST PAIN AT THIS TIME. NO N/V. INFORMED OF PEAK T-WAVES, RESPONSE TO LOPRESSOR HR DROPS TO 40'S, INFORMED THAT 2D ECHO DONE TODAY AWAITING RESULTS. Addendum: 11/14/18 at 1208 by Marybel Calixto RN MD [facility]
--- NOTE | 2018-11-14 12:11 | NUR ---
[employer] INCIDENT RESPONDER 58 YO MALE BIBA FROM HOME TO ER CC N/V PT WITH HX PROSTATE CA ON CHEMO SI: HTN MALIGNANCY CHEMO REACTION T. 97.6 HR 88 RR 20 B/P 170/100 WBC 10.9 BUN 25 AST 43 ALK PHOS 144 TROP 0.154 UA+ PROTEIN,GLU,BLOOD,RBC.UROBILINOGEN TOX SCREEN NEGATIVE IS: IV BOLUS NS X 1 LITER ZOFRAN IV MORPHINE IV BENADRYL IV ADMITTED TO ICU @ 1530 ICU STATUS DCP PENDING HOSPITAL STAY
--- NOTE | 2018-11-14 13:05 | NUR ---
*-* INSURANCE *-* ALL CLINICALS AND REVIEWS HAVE BEEN FAXED TO: [employer].... MUSAM: KEMAL NOLAND P- [phone] F- [phone]...REVIEW/CLINICAL
--- NOTE | 2018-11-14 14:30 | NUR ---
NURSE NOTES: pt given items for hygiene, with minimal assistance cleaned self and did oral care. no distress noted. HR trending -31's post bp medications, pt asymptomatic. will continue to monitor pt status.
--- NOTE | 2018-11-14 16:10 | NUR ---
NURSE NOTES: Patient resting in bed. A/AO x 4.Patient's RR 10 SPO2 97% on 2L NC. No respiratory distress noted. Patient on the reweaver VS 128/84 HR 54. Abdomen firm, non tender. up to restroom. 1 small BM, collected occult stool. Patient PIVs: INES 20G and RAC 20G, patent and saline locked. Patient is able to reposition self. Optifoam on foot dry and intact. Safety measures are in place with the bed locked in the lowest position, side rails up x 2 with call light within reach. Will continue to monitor pt and implement plan of care.
--- NOTE | 2018-11-14 17:00 | Consultation ---
DATE OF CONSULTATION: 11/14/2018 CARDIOLOGY CONSULTATION CONSULTING PHYSICIAN: Richard Umana M.D. REFERRING PHYSICIAN: Raheem Fenton M.D. REASON FOR CONSULTATION: Management of elevated troponin I level. HISTORY OF PRESENT ILLNESS: The patient is a very unfortunate 58-year-old gentleman, who presents to the hospital with nausea and vomiting, inability to keep down. The patient apparently has history of prostate cancer, has been taking oral chemotherapeutic agents. He had some chest pain with the above symptoms according to the emergency department reports although I did not hear from the patient directly that he had chest pain. The patient was feeling lightheaded and dizzy and according to him passed out. At the time of arrival to this facility, blood pressure was 170/100 mmHg and heart rate was 88. A 12-lead electrocardiogram was significant for sinus rhythm with frequent atrial premature complexes, prolonged QT interval, left axis deviation, single ventricular premature complex. Initial troponin I levels were 0.15. Cardiology consultation was made at request of Dr. Fenton for assessment of elevation of troponin I level and hypertensive crisis. The patient was admitted to intensive care unit for further evaluation and management of the above. PAST MEDICAL HISTORY: 1. Prostate cancer status post chemotherapy 2. Hypertension. ALLERGIES: No known drug allergies. MEDICATIONS: List of medications at home including Zytiga 250 mg p.o. daily, lisinopril 10 mg p.o. daily, prednisone 5 mg p.o. daily. REVIEW OF SYSTEMS: A 12-system review done essentially negative except what was mentioned in the history of present illness. PAST SURGICAL HISTORY: None. SOCIAL HISTORY: Denies any tobacco, alcohol, or illicit drug use. PHYSICAL EXAMINATION: VITAL SIGNS: Blood pressure was 170/100, respirations of 20, pulse of 88, temperature 97.5 degrees Fahrenheit, O2 saturation 97% on room air. Hospital course, the patient received diltiazem 10 mg x1 does which controlled the heart rate in the high 50s and low 60s. GENERAL: The patient is a very pleasant 58-year-old gentleman, in no apparent respiratory distress. Alert and oriented x4. HEENT: Atraumatic and normocephalic. Anicteric. Pupils are equal, round, and reactive to light and accommodation. Extraocular muscles intact. NECK: JVP less than 5 cm. No carotid bruit. Carotid upstroke is 2+ bilaterally. CVS: Normal S1 and S2. Regular rate and rhythm. No murmurs, gallops, or rubs. PMI is at fourth intercostal space in the midclavicular line. LUNGS: Clear to auscultation bilaterally. ABDOMEN: Soft, nontender, and nondistended. No hepatosplenomegaly. Positive bowel sounds. EXTREMITIES: No evidence of edema, clubbing, or cyanosis. LABORATORY FINDINGS: WBC 10.9, hemoglobin 10.1, hematocrit 32.7, and platelet count 224. Sodium was 141, potassium is 4.1, chloride 105, bicarbonate 28, BUN of 25, creatinine 1.2, glucose is 182, calcium is 9.1. Troponin I level is 0.15 and 0.15. CK-MB was normal at 2.8. INR 1.0. LDL was 90, HDL was 65, cholesterol is 182, triglyceride 141. Chest x-ray shows cardiomegaly but no acute cardiopulmonary disease. ASSESSMENT AND PLAN: The patient is a very unfortunate 58-year-old gentleman, seen in Cardiology consultation. 1. Hypertensive crisis could be some LV strain causing the elevation of troponin I level. I would continue with metoprolol and lisinopril. Of note, the patient also on prednisone 5 mg twice daily which can attribute to hypertension. Given the fact that the patient's blood pressure is elevated this morning, we will up titrate lisinopril and may have to add calcium channel blockers as well. 2. Slight elevation of troponin I level possible diagnosis could be LV strain with hypertensive crisis, type 2 non-ST elevation myocardial infarction, or underlying sepsis in view of leukocytosis. We will like to obtain noninvasive nuclear stress test to rule out obstructive coronary artery disease. 3. Atrial arrhythmias, we would like to continue with metoprolol. We will review the 2D echocardiography results. 4. Further therapeutic and diagnostic decision will be based on results of 2D echocardiography and results of the stress test ordered. Total amount of time spent in evaluation of this patient in the intensive care unit of [facility] including review of the records, discussing the plan of care with the nursing staff as well as primary care physician was 50 minutes. I would like to thank, Dr. Fenton, for the courtesy of this consultation. Richard Umana M.D. DR: Anusha JOB#: [id number] CC:
--- NOTE | 2018-11-14 18:26 | Cardiology Report ---
APPROVED REPORT EXAM: Two-dimensional and M-mode echocardiogram with Doppler and color Doppler. INDICATION LV FUNCTION M-Mode DIMENSIONS IVSd1.1 (0.7-1.1cm)Left Atrium (MM)3.6 (1.6-4.0cm) LVDd5.5 (3.5-5.6cm)Aortic Root3.0 (2.0-3.7cm) PWd1.4 (0.7-1.1cm)Aortic Cusp Exc.1.8 (1.5-2.0cm) IVSs2.0 cm LVDs3.5 (2.5-4.0cm) PWs2.0 cm Normal left ventricular chamber size, systolic function and wall motion . Left ventricular ejection fraction estimated to be 60%. Mild left ventricular hypertrophy. No evidence of pericardial effusion. Mild left atrial enlargement . Right cardiac chamber sizes are within normal limits. Aortic valve calcification with normal cusp excursion . Mildly thickened mitral valve leaflets with normal excursion. Mild mitral annulus and aortic root calcification. Pulmonic valve not well visualized. IVC at normal size with physiologic collapse . A color flow and spectral Doppler study was performed and revealed: No aortic insufficiency . Mitral diastolic velocities suggest reduced left ventricular relaxation c/w mild LV diastolic dysfunction (Grade I ) Mild to moderate mitral regurgitation. Mild tricuspid regurgitation. Tricuspid systolic velocities suggests peak right ventricular systolic pressure of 27mmHg. Mild pulmonic regurgitation present .
[2018-11-14] MEDS: Lisinopril 10mg tab ORAL SCH (18:31)
--- NOTE | 2018-11-14 18:38 | Cardiology Report ---
APPROVED REPORT EKG Measurement Heart [id number] Sinus rhythm with a couple of short runs of SVT. Single VPC Anterior infarct, age undetermined Prolonged QT Abnormal ECG
--- NOTE | 2018-11-14 18:40 | Cardiology Report ---
APPROVED REPORT EKG Measurement Heart [id number] Sinus rhythm with a short run of SVT Incomplete right bundle branch block Single VPC Minimal voltage criteria for LVH, may be normal variant Anteroseptal infarct, age undetermined Abnormal ECG
--- NOTE | 2018-11-14 19:11 | Internal Med Progress Note ---
Subjective Date of Service: Nov 14, 2018 Physician Name Raheem Fenton Attending Physician Davonte Quijano MD Current Medications Medications (Trade) Dose Ordered Sig/Pancho Route PRN Reason Start Time Stop Time Status Last Admin Dose Admin Acetaminophen (Tylenol) 650 mg Q4H PRN ORAL FEVER 11/13/18 15:15 12/13/18 15:14 11/14/18 05:17 Albuterol/ Ipratropium (Albuterol/ Ipratropium) 3 ml Q4H PRN HHN Shortness of Breath 11/13/18 15:15 11/18/18 15:14 Amlodipine Besylate (Norvasc) 5 mg DAILY ORAL 11/14/18 12:30 12/14/18 12:29 11/14/18 12:38 Aspirin (ASA) 162 mg DAILY ORAL 11/14/18 09:00 12/14/18 08:59 11/14/18 08:43 Atorvastatin Calcium (Lipitor) 80 mg BEDTIME ORAL 11/13/18 21:00 12/13/18 20:59 11/13/18 21:03 Diltiazem HCl (Cardizem) 10 mg Q1H PRN IV heart rate more than 160 11/13/18 17:15 12/13/18 15:14 Enalaprilat (Vasotec) 2.5 mg Q6H PRN IV sbp more than 160 11/13/18 15:15 12/13/18 15:14 Lisinopril (Zestril) 10 mg BID ORAL 11/14/18 18:00 12/14/18 17:59 11/14/18 18:31 Metoprolol Tartrate (Lopressor) 25 mg Q12HR ORAL 11/14/18 09:00 12/14/18 08:59 11/14/18 10:42 Morphine Sulfate (Morphine Sulfate) 2 mg Q4H PRN IVP severe Pain (Pain Scale 7-10) 11/13/18 15:15 11/20/18 15:14 11/14/18 05:43 Nitroglycerin (Ntg) 0.4 mg Q5M PRN SL Prn Chest Pain 11/13/18 15:15 12/13/18 15:14 Ondansetron HCl (Zofran) 4 mg Q6H PRN IVP Nausea & Vomiting 11/13/18 15:15 12/13/18 15:14 11/14/18 05:49 Pantoprazole (Protonix) 40 mg DAILY ORAL 11/14/18 09:00 12/14/18 08:59 11/14/18 08:43 Patient Own Medication (Patient's Own Med) 4 ea DAILY ORAL 11/14/18 10:00 12/14/18 09:59 11/14/18 10:27 Polyethylene Glycol (Miralax) 17 gm DAILYPRN PRN ORAL Constipation 11/13/18 15:15 12/13/18 15:14 Prednisone (predniSONE) 5 mg BID ORAL 11/14/18 09:00 12/14/18 08:59 11/14/18 18:30 Regadenoson (Lexiscan) 0.4 mg ONCE PRN IV CARDIOLOGY 11/15/18 12:19 11/16/18 12:18 Temazepam (Restoril) 15 mg HSPRN PRN ORAL Insomnia 11/13/18 15:15 11/20/18 15:14 Allergies: Coded Allergies: No Known Allergies (Unverified , 11/13/18) ROS Limited/Unobtainable: No Constitutional: Reports: no symptoms HEENT: Reports: no symptoms Cardiovascular: Reports: no symptoms Respiratory: Reports: no symptoms Gastrointestinal/Abdominal: Reports: nausea Genitourinary: Reports: no symptoms Neurologic/Psychiatric: Reports: no symptoms Subjective 58 YO M with stage IV prostate cancer admitted with intractable nausea/vomiting and hypertensive urgency. Cover for Int Med-Dr Quijano. ICU Objective Last Vital Signs Date Time Temp Pulse Resp B/P (MAP) Pulse Ox O2 Delivery O2 Flow Rate FiO2 11/14/18 18:31 130/98 11/14/18 18:00 66 19 97 11/14/18 17:00 98.6 11/14/18 16:00 Nasal Cannula 2.0 11/14/18 10:08 28 Laboratory Tests Test 11/13/18 21:00 11/14/18 03:45 11/14/18 16:00 Sodium Level 144 MMOL/L (136-145) 144 MMOL/L (136-145) Potassium Level 4.0 MMOL/L (3.5-5.1) 4.2 MMOL/L (3.5-5.1) Chloride Level 108 MMOL/L (98-107) H 108 MMOL/L (98-107) H Carbon Dioxide Level 28 MMOL/L (21-32) 28 MMOL/L (21-32) Anion Gap 8 mmol/L (5-15) 8 mmol/L (5-15) Blood Urea Nitrogen 23 mg/dL (7-18) H 21 mg/dL (7-18) H Creatinine 1.2 MG/DL (0.55-1.30) 1.2 MG/DL (0.55-1.30) Estimat Glomerular Filtration Rate > 60 mL/min (>60) > 60 mL/min (>60) Glucose Level 115 MG/DL (74-106) H 105 MG/DL (74-106) Calcium Level 8.6 MG/DL (8.5-10.1) 8.8 MG/DL (8.5-10.1) Total Bilirubin 0.8 MG/DL (0.2-1.0) Aspartate Amino Transf (AST/SGOT) 33 U/L (15-37) Alanine Aminotransferase (ALT/SGPT) 36 U/L (12-78) Alkaline Phosphatase 124 U/L (46-116) H Troponin I 0.129 ng/mL (0.000-0.056) 0.115 ng/mL (0.000-0.056) Total Protein 6.7 G/DL (6.4-8.2) Albumin 3.5 G/DL (3.4-5.0) Globulin 3.2 g/dL Albumin/Globulin Ratio 1.1 (1.0-2.7) White Blood Count 6.4 K/UL (4.8-10.8) Red Blood Count 2.70 M/UL (4.70-6.10) L Hemoglobin 8.8 G/DL (14.2-18.0) L Hematocrit 28.0 % (42.0-52.0) L Mean Corpuscular Volume 104 FL (80-99) H Mean Corpuscular Hemoglobin 32.7 PG (27.0-31.0) H Mean Corpuscular Hemoglobin Concent 31.5 G/DL (32.0-36.0) L Red Cell Distribution Width 13.6 % (11.6-14.8) Platelet Count 141 K/UL (150-450) L Mean Platelet Volume 10.5 FL (6.5-10.1) H Neutrophils (%) (Auto) 66.3 % (45.0-75.0) Lymphocytes (%) (Auto) 24.3 % (20.0-45.0) Monocytes (%) (Auto) 6.5 % (1.0-10.0) Eosinophils (%) (Auto) 2.0 % (0.0-3.0) Basophils (%) (Auto) 0.9 % (0.0-2.0) Prothrombin Time 10.4 SEC (9.30-11.50) Prothromb Time International Ratio 1.0 (0.9-1.1) Activated Partial Thromboplast Time 23 SEC (23-33) C-Reactive Protein, Quantitative < 0.4 mg/dL (0.00-0.90) Triglycerides Level 141 MG/DL (30-150) Cholesterol Level 182 MG/DL (< 200) LDL Cholesterol 90 mg/dL (<100) HDL Cholesterol 65 MG/DL (40-60) H Cholesterol/HDL Ratio 2.8 (3.3-4.4) L Thyroid Stimulating Hormone (TSH) 0.528 uiU/mL (0.358-3.740) Stool Occult Blood Pending Intake and Output 11/13/18 11/14/18 18:59 06:59 Intake Total 480 ml Output Total 650 ml Balance 480 ml -650 ml Intake Oral 480 ml Output Urine Total 650 ml # Voids 1 3 Objective PHYSICAL EXAMINATION: GENERAL: The patient is a well-developed and well-nourished male, in no apparent distress. HEENT: Eyes, pupils are equal and responsive to light and accommodation. Extraocular movements are intact. NECK: Supple without lymphadenopathy. CHEST: Lungs are clear to auscultation bilaterally without wheezes or rales. CARDIOVASCULAR: Regular rhythm and rate. S1, S2 are normal without murmurs, rubs, or gallops. ABDOMEN: Soft, diffusely tender with decreased bowel sounds. No evidence of hepatosplenomegaly. Currently, no rebound or guarding noted. EXTREMITIES: Negative for clubbing, cyanosis, or edema. RECTAL/GENITAL: Refused. NEUROLOGIC: Cranial nerves II through XII are grossly intact without focal deficits. Motor strength is 5/5 bilaterally. Deep tendon reflexes are 2+ plantar. Assessment/Plan Assessment/Plan ASSESSMENT: This is a 58-year-old male. 1. Intractable nausea and vomiting. 2. Vertigo. 3. Hypertensive urgency. 4. Elevated troponin. 5. Stage IV prostate cancer. 6. Gastroesophageal reflux. TREATMENT: 1. Intractable nausea and vomiting. The patient is currently receiving intravenous Zofran. Nausea and vomiting may be secondary to chemotherapy versus gastroenteritis. A Gastroenterology consultation has been obtained with Dr. Tc Ocampo. 2. Vertigo. This probably secondary to nausea and vomiting as above. 3. Hypertensive urgency. Continue lisinopril as above. A Cardiology consultation has been obtained with Dr. Richard Umana. 4. Elevated troponin. As above, a Cardiology consultation has been obtained with Dr. Richard Umana. We will follow recommendations of Cardiology. 5. Prostate cancer. The patient is currently followed as an outpatient by . The patient is currently on Eligard intravenously q. monthly and Lupron injections q.3 months. 6. Gastroesophageal reflux disease. The patient has been started on intravenous Protonix. Raheem Fenton MD Nov 14, 2018 19:11
--- NOTE | 2018-11-14 19:42 | NUR ---
HAND-OFF: Report given to Marva ENNIS. pt in no acute distress.
--- NOTE | 2018-11-14 19:43 | NUR ---
NURSE NOTES: received bedside report from RAYMON Gonzalez.Patient A&O x 4,stable,no c/o pain,no respiratory distress noted at this moment,SR o environmental specialist,tolerated 2 L/min N/C well,lungs clear on auscultation bilateral,BS active in all quadrants,IV asymptomatic intact on L AC 20G and R AC 20G TKO,bed secured in a low safety position,call light within a reach,will conntinue to monitor and follow POC
[2018-11-14] MEDS: Atorvastatin 80mg tab ORAL SCH (20:45)
--- NOTE | 2018-11-14 21:00 | NUR ---
NURSE NOTES: Metoprolol not administered d/t pt's condition B/P 117/80 HR 59,charge nurse aware
--- NOTE | 2018-11-14 22:30 | NUR ---
NURSE NOTES: Pt request sandwich and apple juice, NPO will start from midnight d/t stress test
[2018-11-15] VITALS (24 sets, daily range): BP systolic 112–166; BP diastolic 75–114
--- NOTE | 2018-11-15 01:00 | NUR ---
NURSE NOTES: Pt. called and request to assist him to go restroom,pt ambulatory stable,no dizziness noted at this moment.
--- NOTE | 2018-11-15 03:00 | NUR ---
NURSE NOTES: Pt clean and dry,sleeping,SB 38 bpm noted at iv technician,charge nurse aware,will continue to monitor
[2018-11-15 04:50] LABS: BASOPHILS % (AUTO) 1.3 % (0.0-2.0); EOSINOPHILS % (AUTO) 1.1 % (0.0-3.0); HEMATOCRIT 31.2 % (42.0-52.0); HEMOGLOBIN 9.9 G/DL (14.2-18.0); LYMPHOCYTES % (AUTO) 12.4 % (20.0-45.0); MEAN CORPUSCULAR VOLUME 105 FL (80-99); MONOCYTES % (AUTO) 5.2 % (1.0-10.0); PLATELET COUNT 155 K/UL (150-450); RED BLOOD COUNT 2.98 M/UL (4.70-6.10); WHITE BLOOD COUNT 8.1 K/UL (4.8-10.8)
[2018-11-15 05:42] LABS: ALANINE AMINOTRANSFERASE 39 U/L (12-78); ALBUMIN 3.5 G/DL (3.4-5.0); ALKALINE PHOSPHATASE 135 U/L (46-116); ANION GAP 7 mmol/L (5-15); ASPARTATE AMINO TRANSFERASE 31 U/L (15-37); BILIRUBIN,TOTAL 0.8 MG/DL (0.2-1.0); BLOOD UREA NITROGEN 29 mg/dL (7-18); CALCIUM 9.3 MG/DL (8.5-10.1); CARBON DIOXIDE 28 MMOL/L (21-32); CHLORIDE 107 MMOL/L (98-107); CREATININE 1.1 MG/DL (0.55-1.30); FERRITIN 75 NG/ML (8-388); POTASSIUM 5.4 MMOL/L (3.5-5.1); SODIUM 142 MMOL/L (136-145)
--- NOTE | 2018-11-15 05:50 | NUR ---
NURSE NOTES: Pt clean and dry,self repositioned,tolerated 2 L/min N/C well.Will continue to monitor
[2018-11-15 06:03] LABS: % IRON SATURATION 15 % (15-50); IRON 52 ug/dL (50-175); TOTAL IRON BINDING CAPACITY 337 ug/dL (250-450)
--- NOTE | 2018-11-15 07:20 | NUR ---
HAND-OFF: Report given to RAYMON Menjivar.Patient stable.
--- NOTE | 2018-11-15 07:21 | NUR ---
NURSE NOTES: Received PT and report from Marva RN & Donna RN. A/O x 4, pleasant, follows commands, VS stable, NC-2L no respiratory distress noted, bilateral lung sounds clear on auscultation, SR @ 65 noted, 152/93 BP upon receiving. R-AC 20g and L-forearm 22g has saline lock, patent, flushes well. Bed at lowest position, call light within reach. PT has plans for cardiac stress test, but clarification on consent for test needs clarification. Will follow through with plan of care and monitor PT.
--- NOTE | 2018-11-15 08:46 | General Progress Note ---
Assessment/Plan Assessment/Plan: 1) Chemotherapy adverse reaction (2) Elevated troponin (3) Hypertensive urgency, malignant (4) Nausea & vomiting (5) Bradycardia Plan Nausea vomiting most likely due to hypertensive crisis versus chemo drug induced >>> resolving We will consider endoscopy if patient has persistent nausea and vomiting>> and if cleared by cardiology Continue Zofran as needed, add Reglan as needed for persistent vomiting anemia work up OB stool r/o GI bleed monitor H&H, prn transfusions bowel regimen ppi fu labs Follow-up cardiac recommendations>>> pending stress test for today Subjective Allergies: Coded Allergies: No Known Allergies (Unverified , 11/13/18) Objective Last 24 Hour Vital Signs Date Time Temp Pulse Resp B/P (MAP) Pulse Ox O2 Delivery O2 Flow Rate FiO2 11/15/18 07:00 54 11 144/76 (98) 98 11/15/18 06:00 58 14 122/87 (99) 97 11/15/18 05:00 51 11 137/88 (104) 98 11/15/18 04:00 Nasal Cannula 2.0 11/15/18 04:00 48 15 143/92 (109) 100 11/15/18 03:00 47 11 166/94 (118) 99 11/15/18 03:00 50 11/15/18 02:00 97.7 49 12 129/85 (100) 97 11/15/18 01:00 50 14 135/84 (101) 98 11/15/18 01:00 50 11 118/78 (91) 97 11/15/18 00:00 Nasal Cannula 2.0 11/15/18 00:00 50 11 118/78 (91) 97 11/14/18 23:34 50 11/14/18 23:00 63 14 120/81 (94) 97 11/14/18 22:00 59 14 143/92 (109) 99 11/14/18 21:00 64 16 141/101 (114) 98 11/14/18 20:44 59 117/80 11/14/18 20:00 60 13 130/98 (109) 97 11/14/18 20:00 Nasal Cannula 2.0 11/14/18 19:12 56 11/14/18 19:05 98 Nasal Cannula 2.0 28 11/14/18 19:00 57 13 117/80 (92) 98 11/14/18 18:31 130/98 11/14/18 18:00 66 19 130/98 (109) 97 11/14/18 17:00 98.6 54 10 129/89 (102) 99 11/14/18 16:00 Nasal Cannula 2.0 11/14/18 16:00 53 11/14/18 16:00 52 11 131/88 (102) 98 11/14/18 15:00 63 11 128/84 (99) 97 11/14/18 14:00 61 10 142/91 (108) 99 11/14/18 13:00 56 11 156/94 (114) 99 11/14/18 12:38 62 156/110 11/14/18 12:00 56 11/14/18 12:00 98.3 64 13 153/95 (114) 99 11/14/18 12:00 Nasal Cannula 2.0 11/14/18 11:00 55 10 158/95 (116) 99 11/14/18 10:42 62 167/108 11/14/18 10:08 97 Nasal Cannula 2.0 28 11/14/18 10:00 65 15 169/112 (131) 97 11/14/18 09:00 59 12 159/109 (126) 97 Intake and Output 11/14/18 11/15/18 19:00 07:00 Intake Total 420 ml 360 ml Output Total 530 ml Balance -110 ml 360 ml Intake Oral 420 ml 360 ml Output Urine Total 530 ml # Bowel Movements 1 3 Laboratory Tests 11/14/18 16:00: Stool Occult Blood [Pending] 11/15/18 04:15: White Blood Count 8.1, Red Blood Count 2.98L, Hemoglobin 9.9L, Hematocrit 31.2L , Mean Corpuscular Volume 105H, Mean Corpuscular Hemoglobin 33.1H, Mean Corpuscular Hemoglobin Concent 31.7L, Red Cell Distribution Width 13.0, Platelet Count 155, Mean Platelet Volume 10.7H, Neutrophils (%) (Auto) 80.0H, Lymphocytes (%) (Auto) 12.4L, Monocytes (%) (Auto) 5.2, Eosinophils (%) (Auto) 1.1, Basophils (%) (Auto) 1.3, Reticulocyte Count [Pending], Prothrombin Time 10.4, Prothromb Time International Ratio 1.0, Activated Partial Thromboplast Time 24, Sodium Level 142, Potassium Level 5.4H, Chloride Level 107, Carbon Dioxide Level 28, Anion Gap 7, Blood Urea Nitrogen 29H, Creatinine 1.1, Estimat Glomerular Filtration Rate > 60, Glucose Level 104, Calcium Level 9.3, Iron Level 52, Total Iron Binding Capacity 337, Percent Iron Saturation 15, Unsaturated Iron Binding 285, Ferritin 75, Total Bilirubin 0.8, Aspartate Amino Transf (AST/SGOT) 31, Alanine Aminotransferase (ALT/SGPT) 39, Alkaline Phosphatase 135H, Troponin I 0.098H, Total Protein 6.9, Albumin 3.5, Globulin 3.4, Albumin/Globulin Ratio 1.0, Vitamin B12 Level 368, Folate 10.7, Thyroid Stimulating Hormone (TSH) 0.192L, Free Thyroxine 0.97 Height (Feet): 5 Height (Inches): 11.00 Weight (Pounds): 149 EENT: normal ENT inspection Neck: supple Cardiovascular: normal rate Respiratory/Chest: lungs clear Abdomen: normal bowel sounds, non tender, soft Extremities: non-tender Tc Ocampo MD Nov 15, 2018 08:46
[2018-11-15] MEDS: Metoprolol 25mg tab ORAL SCH ×2 (09:00→20:53)
[2018-11-15] MEDS: ABIRATERONE 250 MG ORAL SCH (09:07)
[2018-11-15] MEDS: Lisinopril 10mg tab ORAL SCH ×2 (09:38→18:16)
[2018-11-15] MEDS: Aspirin Baby 81mg ORAL SCH (09:38)
--- NOTE | 2018-11-15 09:38 | NUR ---
NURSE NOTES: PT not given Lopressor, all other morning meds given. CN aware. Will monitor PT.
--- NOTE | 2018-11-15 09:43 | NUR ---
NURSE NOTES: Cardiac stress test on hold until PT gets downgraded. CN aware of hold on cardiac stress. PT made aware, will continue with plan of care.
--- NOTE | 2018-11-15 10:45 | NUR ---
NURSE NOTES: PT sleeping, HR went to 44-45. CN made aware. Will continue to monitor PT.
--- NOTE | 2018-11-15 10:48 | NUR ---
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 98.0 HR 54 RR 16 B/P 141/91 2L NC O2 SAT @ 98% K 5.4 BUN 29 TROP 0.098 IS; ZESTRIL PO NORVASC PO PROTONIX PO ICU STATUS
--- NOTE | 2018-11-15 11:10 | NUR ---
NURSE NOTES: PT A/O x 4, was told "I'm having an episode of hot flashes", VS stable, BP 128/85, HR 63. No respiratory distress noted PT on 2L-NC. Will continue to monitor.
[2018-11-15] MEDS ORDERED: Lexiscan 0.4mg/5ml syringe IV PRN (12:19)
--- NOTE | 2018-11-15 14:00 | NUR ---
NURSE NOTES: PT provided snack of fruit cup and jello. HR @ SR 60-65, no respiratory distress noted, BP 120/86. Will continue to monitor PT.
--- NOTE | 2018-11-15 17:03 | Internal Med Progress Note ---
Subjective Date of Service: Nov 15, 2018 Physician Name Raheem Fenton Attending Physician Davonte Quijano MD Current Medications Medications (Trade) Dose Ordered Sig/Pancho Route PRN Reason Start Time Stop Time Status Last Admin Dose Admin Acetaminophen (Tylenol) 650 mg Q4H PRN ORAL FEVER 11/13/18 15:15 12/13/18 15:14 11/14/18 05:17 Albuterol/ Ipratropium (Albuterol/ Ipratropium) 3 ml Q4H PRN HHN Shortness of Breath 11/13/18 15:15 11/18/18 15:14 Amlodipine Besylate (Norvasc) 5 mg DAILY ORAL 11/14/18 12:30 12/14/18 12:29 11/15/18 09:39 Aspirin (ASA) 162 mg DAILY ORAL 11/14/18 09:00 12/14/18 08:59 11/15/18 09:38 Atorvastatin Calcium (Lipitor) 80 mg BEDTIME ORAL 11/13/18 21:00 12/13/18 20:59 11/14/18 20:45 Diltiazem HCl (Cardizem) 10 mg Q1H PRN IV heart rate more than 160 11/13/18 17:15 12/13/18 15:14 Enalaprilat (Vasotec) 2.5 mg Q6H PRN IV sbp more than 160 11/13/18 15:15 12/13/18 15:14 Lisinopril (Zestril) 10 mg BID ORAL 11/14/18 18:00 12/14/18 17:59 11/15/18 09:38 Metoprolol Tartrate (Lopressor) 25 mg Q12HR ORAL 11/14/18 09:00 12/14/18 08:59 11/14/18 10:42 Morphine Sulfate (Morphine Sulfate) 2 mg Q4H PRN IVP severe Pain (Pain Scale 7-10) 11/13/18 15:15 11/20/18 15:14 11/14/18 05:43 Nitroglycerin (Ntg) 0.4 mg Q5M PRN SL Prn Chest Pain 11/13/18 15:15 12/13/18 15:14 Ondansetron HCl (Zofran) 4 mg Q6H PRN IVP Nausea & Vomiting 11/13/18 15:15 12/13/18 15:14 11/14/18 05:49 Pantoprazole (Protonix) 40 mg DAILY ORAL 11/14/18 09:00 12/14/18 08:59 11/15/18 09:38 Patient Own Medication (Patient's Own Med) 4 ea DAILY ORAL 11/14/18 10:00 12/14/18 09:59 11/15/18 09:07 Polyethylene Glycol (Miralax) 17 gm DAILYPRN PRN ORAL Constipation 11/13/18 15:15 12/13/18 15:14 Prednisone (predniSONE) 5 mg BID ORAL 11/14/18 09:00 12/14/18 08:59 11/15/18 09:07 Regadenoson (Lexiscan) 0.4 mg ONCE PRN IV CARDIOLOGY 11/15/18 12:19 11/16/18 12:18 Temazepam (Restoril) 15 mg HSPRN PRN ORAL Insomnia 11/13/18 15:15 11/20/18 15:14 Allergies: Coded Allergies: No Known Allergies (Unverified , 11/13/18) ROS Limited/Unobtainable: No Constitutional: Reports: no symptoms HEENT: Reports: no symptoms Cardiovascular: Reports: no symptoms Respiratory: Reports: no symptoms Gastrointestinal/Abdominal: Reports: no symptoms Genitourinary: Reports: no symptoms Neurologic/Psychiatric: Reports: no symptoms Subjective 58 YO M with stage IV prostate cancer admitted with intractable nausea/vomiting and hypertensive urgency. Cover for Int Med-Dr Quijano. ICU Objective Last Vital Signs Date Time Temp Pulse Resp B/P (MAP) Pulse Ox O2 Delivery O2 Flow Rate FiO2 11/15/18 16:00 Nasal Cannula 2.0 11/15/18 16:00 98.7 67 16 114/75 (88) 99 11/14/18 19:05 28 Laboratory Tests Test 11/15/18 04:15 11/15/18 15:00 White Blood Count 8.1 K/UL (4.8-10.8) Red Blood Count 2.98 M/UL (4.70-6.10) L Hemoglobin 9.9 G/DL (14.2-18.0) L Hematocrit 31.2 % (42.0-52.0) L Mean Corpuscular Volume 105 FL (80-99) H Mean Corpuscular Hemoglobin 33.1 PG (27.0-31.0) H Mean Corpuscular Hemoglobin Concent 31.7 G/DL (32.0-36.0) L Red Cell Distribution Width 13.0 % (11.6-14.8) Platelet Count 155 K/UL (150-450) Mean Platelet Volume 10.7 FL (6.5-10.1) H Neutrophils (%) (Auto) 80.0 % (45.0-75.0) H Lymphocytes (%) (Auto) 12.4 % (20.0-45.0) L Monocytes (%) (Auto) 5.2 % (1.0-10.0) Eosinophils (%) (Auto) 1.1 % (0.0-3.0) Basophils (%) (Auto) 1.3 % (0.0-2.0) Reticulocyte Count 3.5 % (0.5-2.0) H Prothrombin Time 10.4 SEC (9.30-11.50) Prothromb Time International Ratio 1.0 (0.9-1.1) Activated Partial Thromboplast Time 24 SEC (23-33) Sodium Level 142 MMOL/L (136-145) Potassium Level 5.4 MMOL/L (3.5-5.1) H Chloride Level 107 MMOL/L (98-107) Carbon Dioxide Level 28 MMOL/L (21-32) Anion Gap 7 mmol/L (5-15) Blood Urea Nitrogen 29 mg/dL (7-18) H Creatinine 1.1 MG/DL (0.55-1.30) Estimat Glomerular Filtration Rate > 60 mL/min (>60) Glucose Level 104 MG/DL (74-106) Calcium Level 9.3 MG/DL (8.5-10.1) Iron Level 52 ug/dL (50-175) Total Iron Binding Capacity 337 ug/dL (250-450) Percent Iron Saturation 15 % (15-50) Unsaturated Iron Binding 285 ug/dL (112-346) Ferritin 75 NG/ML (8-388) Total Bilirubin 0.8 MG/DL (0.2-1.0) Aspartate Amino Transf (AST/SGOT) 31 U/L (15-37) Alanine Aminotransferase (ALT/SGPT) 39 U/L (12-78) Alkaline Phosphatase 135 U/L (46-116) H Troponin I 0.098 ng/mL (0.000-0.056) 0.097 ng/mL (0.000-0.056) Total Protein 6.9 G/DL (6.4-8.2) Albumin 3.5 G/DL (3.4-5.0) Globulin 3.4 g/dL Albumin/Globulin Ratio 1.0 (1.0-2.7) Vitamin B12 Level 368 PG/ML (193-986) Folate 10.7 NG/ML (8.6-58.9) Thyroid Stimulating Hormone (TSH) 0.192 uiU/mL (0.358-3.740) Free Thyroxine 0.97 NG/DL (0.76-1.46) Microbiology Date/Time Source Procedure Growth Status 11/13/18 15:30 Nasal Nares MRSA Culture - Final Staphylococcus Aureus - [facility] Complete Intake and Output 11/14/18 11/15/18 19:00 07:00 Intake Total 420 ml 360 ml Output Total 530 ml Balance -110 ml 360 ml Intake Oral 420 ml 360 ml Output Urine Total 530 ml # Bowel Movements 1 3 Objective PHYSICAL EXAMINATION: GENERAL: The patient is a well-developed and well-nourished male, in no apparent distress. HEENT: Eyes, pupils are equal and responsive to light and accommodation. Extraocular movements are intact. NECK: Supple without lymphadenopathy. CHEST: Lungs are clear to auscultation bilaterally without wheezes or rales. CARDIOVASCULAR: Regular rhythm and rate. S1, S2 are normal without murmurs, rubs, or gallops. ABDOMEN: Soft, diffusely tender with decreased bowel sounds. No evidence of hepatosplenomegaly. Currently, no rebound or guarding noted. EXTREMITIES: Negative for clubbing, cyanosis, or edema. RECTAL/GENITAL: Refused. NEUROLOGIC: Cranial nerves II through XII are grossly intact without focal deficits. Motor strength is 5/5 bilaterally. Deep tendon reflexes are 2+ plantar. Assessment/Plan Assessment/Plan ASSESSMENT: This is a 58-year-old male. 1. Intractable nausea and vomiting. 2. Vertigo. 3. Hypertensive urgency. 4. Elevated troponin. 5. Stage IV prostate cancer. 6. Gastroesophageal reflux. TREATMENT: 1. Intractable nausea and vomiting. The patient is currently receiving intravenous Zofran. Nausea and vomiting may be secondary to chemotherapy versus gastroenteritis. A Gastroenterology consultation has been obtained with Dr. Tc Ocampo. 2. Vertigo. This probably secondary to nausea and vomiting as above. 3. Hypertensive urgency. Continue lisinopril as above. A Cardiology consultation has been obtained with Dr. Richard Umana. 4. Elevated troponin. As above, a Cardiology consultation has been obtained with Dr. Richard Umana. Pharmacologic Cardiolite stress test today 5. Prostate cancer. The patient is currently followed as an outpatient by . The patient is currently on Eligard intravenously q. monthly and Lupron injections q.3 months. 6. Gastroesophageal reflux disease. The patient has been started on intravenous Protonix. Raheem Fenton MD Nov 15, 2018 17:03
--- NOTE | 2018-11-15 17:45 | NUR ---
NURSE NOTES: Left message for MD Jossy for a call back in regards to PT requests for questions about his prognosis. CN made aware. Will continue to monitor PT.
--- NOTE | 2018-11-15 19:10 | NUR ---
HAND-OFF: Report and PT given to RAYMON Ruff.
--- NOTE | 2018-11-15 19:30 | NUR ---
NURSE NOTES: Recvd.AAO watching TV denies CP.No N/V.Resp.unlabored.P.Ox.99-100% on 2L/NC inh.Lungs clear.See V/S.Scope SR-SB Asymptomatic.NPO After MN.Pancho.for Poss.Stress TEST in am.Fully instructed.
[2018-11-15] MEDS: Atorvastatin 80mg tab ORAL SCH (20:51)
--- NOTE | 2018-11-15 22:30 | NUR ---
NURSE NOTES: HS care assisted.Due med.recvd.Metoprolol witheld HR-56.No CP.Snack recvd.Taken 100%.Fully instructed NPO after MN for Poss.rafi.Stress test in am with .
--- NOTE | 2018-11-15 23:59 | Cardiology Progress Note ---
Assessment/Plan Assessment/Plan 1. Hypertensive crisis, optimize metoprolol and lisinopril. Daily prednisone therapy can attribute to hypertension. 2. Slight elevation of troponin I level possible diagnosis could be LV strain with hypertensive crisis, type 2 non-ST elevation myocardial infarction, or underlying sepsis in view of leukocytosis. Noninvasive nuclear stress test is rescheduled for tomorrow to rule out obstructive coronary artery disease. 3. Atrial arrhythmias, continue metoprolol. 2D echocardiography shows normal LV systolic function with LVEF at 60%. Subjective Subjective Sinus rhythm at rate of 82. Objective Last 24 Hour Vital Signs Date Time Temp Pulse Resp B/P (MAP) Pulse Ox O2 Delivery O2 Flow Rate FiO2 11/15/18 21:21 97 Nasal Cannula 2.0 28 11/15/18 21:21 82 20 97 Nasal Cannula 2.0 28 11/15/18 20:53 56 114/83 11/15/18 18:16 142/102 11/15/18 18:00 71 16 134/114 (121) 99 11/15/18 17:00 61 17 142/102 (115) 100 11/15/18 16:00 Nasal Cannula 2.0 11/15/18 16:00 98.7 67 16 114/75 (88) 99 11/15/18 16:00 56 11/15/18 15:00 58 14 134/87 (103) 100 11/15/18 14:00 61 15 120/86 (97) 98 11/15/18 13:00 73 17 125/88 (100) 97 11/15/18 12:00 68 11/15/18 12:00 Nasal Cannula 2.0 11/15/18 12:00 97.1 55 14 137/87 (104) 99 11/15/18 11:00 62 13 128/85 (99) 97 11/15/18 10:54 97 Nasal Cannula 2.0 28 11/15/18 10:00 57 12 154/95 (114) 99 11/15/18 09:39 61 141/91 11/15/18 09:38 141/91 11/15/18 09:00 61 141/91 11/15/18 09:00 61 16 141/91 (108) 99 11/15/18 08:00 98.0 65 15 152/93 (112) 100 11/15/18 08:00 Nasal Cannula 2.0 11/15/18 08:00 68 11/15/18 07:00 54 11 144/76 (98) 98 11/15/18 06:00 58 14 122/87 (99) 97 11/15/18 05:00 51 11 137/88 (104) 98 11/15/18 04:00 Nasal Cannula 2.0 11/15/18 04:00 48 15 143/92 (109) 100 11/15/18 03:00 47 11 166/94 (118) 99 11/15/18 03:00 50 11/15/18 02:00 97.7 49 12 129/85 (100) 97 11/15/18 01:00 50 14 135/84 (101) 98 11/15/18 01:00 50 11 118/78 (91) 97 11/15/18 00:00 Nasal Cannula 2.0 11/15/18 00:00 50 11 118/78 (91) 97 Intake and Output 11/14/18 11/15/18 18:59 06:59 Intake Total 420 ml 360 ml Output Total 530 ml Balance -110 ml 360 ml Intake Oral 420 ml 360 ml Output Urine Total 530 ml # Bowel Movements 1 3 2D Echo: LVEF 60%, Mild LVH, Mild LAE, Grade I LVDD, RVSP 27 mmHg Laboratory Tests Test 11/15/18 04:15 11/15/18 15:00 White Blood Count 8.1 K/UL (4.8-10.8) Red Blood Count 2.98 M/UL (4.70-6.10) L Hemoglobin 9.9 G/DL (14.2-18.0) L Hematocrit 31.2 % (42.0-52.0) L Mean Corpuscular Volume 105 FL (80-99) H Mean Corpuscular Hemoglobin 33.1 PG (27.0-31.0) H Mean Corpuscular Hemoglobin Concent 31.7 G/DL (32.0-36.0) L Red Cell Distribution Width 13.0 % (11.6-14.8) Platelet Count 155 K/UL (150-450) Mean Platelet Volume 10.7 FL (6.5-10.1) H Neutrophils (%) (Auto) 80.0 % (45.0-75.0) H Lymphocytes (%) (Auto) 12.4 % (20.0-45.0) L Monocytes (%) (Auto) 5.2 % (1.0-10.0) Eosinophils (%) (Auto) 1.1 % (0.0-3.0) Basophils (%) (Auto) 1.3 % (0.0-2.0) Reticulocyte Count 3.5 % (0.5-2.0) H Prothrombin Time 10.4 SEC (9.30-11.50) Prothromb Time International Ratio 1.0 (0.9-1.1) Activated Partial Thromboplast Time 24 SEC (23-33) Sodium Level 142 MMOL/L (136-145) Potassium Level 5.4 MMOL/L (3.5-5.1) H Chloride Level 107 MMOL/L (98-107) Carbon Dioxide Level 28 MMOL/L (21-32) Anion Gap 7 mmol/L (5-15) Blood Urea Nitrogen 29 mg/dL (7-18) H Creatinine 1.1 MG/DL (0.55-1.30) Estimat Glomerular Filtration Rate > 60 mL/min (>60) Glucose Level 104 MG/DL (74-106) Calcium Level 9.3 MG/DL (8.5-10.1) Iron Level 52 ug/dL (50-175) Total Iron Binding Capacity 337 ug/dL (250-450) Percent Iron Saturation 15 % (15-50) Unsaturated Iron Binding 285 ug/dL (112-346) Ferritin 75 NG/ML (8-388) Total Bilirubin 0.8 MG/DL (0.2-1.0) Aspartate Amino Transf (AST/SGOT) 31 U/L (15-37) Alanine Aminotransferase (ALT/SGPT) 39 U/L (12-78) Alkaline Phosphatase 135 U/L (46-116) H Troponin I 0.098 ng/mL (0.000-0.056) 0.097 ng/mL (0.000-0.056) Total Protein 6.9 G/DL (6.4-8.2) Albumin 3.5 G/DL (3.4-5.0) Globulin 3.4 g/dL Albumin/Globulin Ratio 1.0 (1.0-2.7) Vitamin B12 Level 368 PG/ML (193-986) Folate 10.7 NG/ML (8.6-58.9) Thyroid Stimulating Hormone (TSH) 0.192 uiU/mL (0.358-3.740) Free Thyroxine 0.97 NG/DL (0.76-1.46) Microbiology Date/Time Source Procedure Growth Status 11/13/18 15:30 Nasal Nares MRSA Culture - Final Staphylococcus Aureus - Mrsa Complete Objective HEENT: Atraumatic and normocephalic. Anicteric. Pupils are equal, round, and reactive to light and accommodation. Extraocular muscles intact. NECK: JVP less than 5 cm. No carotid bruit. Carotid upstroke is 2+ bilaterally. CVS: Normal S1 and S2. Regular rate and rhythm. No murmurs, gallops, or rubs. PMI is at fourth intercostal space in the midclavicular line. LUNGS: Clear to auscultation bilaterally. ABDOMEN: Soft, nontender, and nondistended. No hepatosplenomegaly. Positive bowel sounds. EXTREMITIES: No evidence of edema, clubbing, or cyanosis. Richard Umana MD Nov 15, 2018 23:59
[2018-11-16] VITALS (18 sets, daily range): BP systolic 91–141; BP diastolic 47–94
--- NOTE | 2018-11-16 00:10 | NUR ---
NURSE NOTES: See V/S.Scope rhythm same.Pos. self to comfort.No Distress.NPO for poss.Stress test in am.
--- NOTE | 2018-11-16 02:00 | NUR ---
NURSE NOTES: Sound asleep,Resp.unlabored.Sat.99-100%.Status same.Cont.Plan of care.
--- NOTE | 2018-11-16 04:08 | NUR ---
NURSE NOTES: Assisted with am care.Denies any discomfort.Blood drawn for cbc/bmp spec.to Lab.Slept well.No N/V.VSS.Scope SR-SB asymptomatic.
[2018-11-16 04:42] LABS: BASOPHILS % (AUTO) 1.2 % (0.0-2.0); EOSINOPHILS % (AUTO) 1.3 % (0.0-3.0); HEMATOCRIT 31.7 % (42.0-52.0); HEMOGLOBIN 10.2 G/DL (14.2-18.0); LYMPHOCYTES % (AUTO) 10.9 % (20.0-45.0); MEAN CORPUSCULAR VOLUME 102 FL (80-99); MONOCYTES % (AUTO) 5.4 % (1.0-10.0); NEUTROPHILS % (AUTO) 81.2 % (45.0-75.0); PLATELET COUNT 178 K/UL (150-450); RED BLOOD COUNT 3.11 M/UL (4.70-6.10); RED CELL DISTRIBUTION WIDTH 13.6 % (11.6-14.8); WHITE BLOOD COUNT 10.2 K/UL (4.8-10.8)
[2018-11-16 05:06] LABS: ANION GAP 7 mmol/L (5-15); BLOOD UREA NITROGEN 31 mg/dL (7-18); CARBON DIOXIDE 27 MMOL/L (21-32); CHLORIDE 107 MMOL/L (98-107); CREATININE 1.2 MG/DL (0.55-1.30); POTASSIUM 4.4 MMOL/L (3.5-5.1); SODIUM 141 MMOL/L (136-145)
--- NOTE | 2018-11-16 07:15 | NUR ---
NURSE NOTES: Received pt from RAYMON Ruff. Patient is awake, A/Ox4. Breathing even and unlabored. Bilateral breath sounds diminished but clear. Denies SOB, CP or pain at this time. Patient has 2LNC, oxygen saturation is 98%. Patient has been NPO since midnight for a stress test. RAC 20G and INES 22G patent and asymptomatic and connected to TKO. Sinus rhythm on safety spec. Patient has a wound on left foot, dressing is intact. Bed locked, alarmed and in lowest position. Will continue plan of care.
--- NOTE | 2018-11-16 07:33 | NUR ---
NURSE NOTES: HAND-OFF: Report given to RAYMON DODSON.
[2018-11-16] MEDS: Metoprolol 25mg tab ORAL SCH ×2 (09:00→20:58)
--- NOTE | 2018-11-16 09:11 | General Progress Note ---
Assessment/Plan Assessment/Plan: 1) Chemotherapy adverse reaction (2) Elevated troponin (3) Hypertensive urgency, malignant (4) Nausea & vomiting (5) Bradycardia Plan Nausea vomiting most likely due to hypertensive crisis versus chemo drug induced >>> resolving We will consider endoscopy if patient has persistent nausea and vomiting>> and if cleared by cardiology Continue Zofran as needed, add Reglan as needed for persistent vomiting anemia work up OB stool r/o GI bleed monitor H&H, prn transfusions bowel regimen ppi fu labs Follow-up cardiac recommendations>>> pending stress test for today Subjective ROS Limited/Unobtainable: Yes Allergies: Coded Allergies: No Known Allergies (Unverified , 11/13/18) Objective Last 24 Hour Vital Signs Date Time Temp Pulse Resp B/P (MAP) Pulse Ox O2 Delivery O2 Flow Rate FiO2 11/16/18 06:00 67 13 124/80 (95) 97 11/16/18 05:00 63 14 125/63 (83) 96 11/16/18 04:00 98.4 61 16 119/75 (90) 96 11/16/18 04:00 Nasal Cannula 2.0 11/16/18 04:00 61 11/16/18 03:00 63 14 115/73 (87) 96 11/16/18 02:00 70 16 124/77 (93) 99 11/16/18 01:00 64 14 123/74 (90) 99 11/16/18 00:00 Nasal Cannula 2.0 11/16/18 00:00 98.3 79 17 136/86 (103) 99 11/16/18 00:00 79 11/15/18 23:00 66 16 112/80 (91) 99 11/15/18 22:00 76 14 135/76 (95) 99 11/15/18 21:21 97 Nasal Cannula 2.0 28 11/15/18 21:21 82 20 97 Nasal Cannula 2.0 28 11/15/18 21:00 56 14 125/80 (95) 99 11/15/18 20:53 56 114/83 11/15/18 20:00 59 11/15/18 20:00 Nasal Cannula 2.0 11/15/18 20:00 98.6 59 16 114/83 (93) 100 11/15/18 19:00 63 14 130/90 (103) 99 11/15/18 18:16 142/102 11/15/18 18:00 71 16 134/114 (121) 99 11/15/18 17:00 61 17 142/102 (115) 100 11/15/18 16:00 Nasal Cannula 2.0 11/15/18 16:00 98.7 67 16 114/75 (88) 99 11/15/18 16:00 56 11/15/18 15:00 58 14 134/87 (103) 100 11/15/18 14:00 61 15 120/86 (97) 98 11/15/18 13:00 73 17 125/88 (100) 97 11/15/18 12:00 68 11/15/18 12:00 Nasal Cannula 2.0 11/15/18 12:00 97.1 55 14 137/87 (104) 99 11/15/18 11:00 62 13 128/85 (99) 97 11/15/18 10:54 97 Nasal Cannula 2.0 28 11/15/18 10:00 57 12 154/95 (114) 99 11/15/18 09:39 61 141/91 11/15/18 09:38 141/91 Intake and Output 11/15/18 11/16/18 19:00 07:00 Intake Total 0 ml 560 ml Output Total 1190 ml 640 ml Balance -1190 ml -80 ml Intake Oral 0 ml 560 ml Output Urine Total 1190 ml 640 ml Laboratory Tests 11/15/18 15:00: Troponin I 0.097H 11/16/18 04:00: White Blood Count 10.2, Red Blood Count 3.11L, Hemoglobin 10.2L, Hematocrit 31.7L, Mean Corpuscular Volume 102H, Mean Corpuscular Hemoglobin 33.0H, Mean Corpuscular Hemoglobin Concent 32.3, Red Cell Distribution Width 13.6, Platelet Count 178, Mean Platelet Volume 10.8H, Neutrophils (%) (Auto) 81.2H, Lymphocytes (%) (Auto) 10.9L, Monocytes (%) (Auto) 5.4, Eosinophils (%) (Auto) 1.3, Basophils (%) (Auto) 1.2, Sodium Level 141, Potassium Level 4.4, Chloride Level 107, Carbon Dioxide Level 27, Anion Gap 7, Blood Urea Nitrogen 31H, Creatinine 1.2, Estimat Glomerular Filtration Rate > 60, Glucose Level 105, Calcium Level 9.0 Height (Feet): 5 Height (Inches): 11.00 Weight (Pounds): 151 General Appearance: no apparent distress EENT: PERRL/EOMI Neck: supple Cardiovascular: normal rate Respiratory/Chest: decreased breath sounds Abdomen: normal bowel sounds, non tender, soft Extremities: non-tender Tc Ocampo MD Nov 16, 2018 09:11
[2018-11-16] MEDS: Aspirin Baby 81mg ORAL SCH (09:27)
[2018-11-16] MEDS: ABIRATERONE 250 MG ORAL SCH (09:28)
[2018-11-16] MEDS: Lisinopril 10mg tab ORAL SCH ×2 (09:28→17:55)
--- NOTE | 2018-11-16 09:30 | NUR ---
NURSE NOTES: Stress test rescheduled to tomorrow 10:00am because patient must be transferred out of ICU per cardiology. Notified Dr. Umana. Cecilia.Bita to resume diet until MESHA choudhary.
--- NOTE | 2018-11-16 11:56 | NUR ---
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 98.4 HR 61 RR 16 B/P 119/75 2L NC O2 SAT @ 98% BUN 31 IS: LOPRESSOR PO PROTONIX PO ZESTRIL PO CARDIZEM PO STRESS TEST STEP DOWN STATUS
--- NOTE | 2018-11-16 12:12 | Internal Med Progress Note ---
Subjective Date of Service: Nov 16, 2018 Physician Name Raheem Fenton Attending Physician Davonte Quijano MD Current Medications Medications (Trade) Dose Ordered Sig/Pancho Route PRN Reason Start Time Stop Time Status Last Admin Dose Admin Acetaminophen (Tylenol) 650 mg Q4H PRN ORAL FEVER 11/13/18 15:15 12/13/18 15:14 11/14/18 05:17 Albuterol/ Ipratropium (Albuterol/ Ipratropium) 3 ml Q4H PRN HHN Shortness of Breath 11/13/18 15:15 11/18/18 15:14 Amlodipine Besylate (Norvasc) 5 mg DAILY ORAL 11/14/18 12:30 12/14/18 12:29 11/16/18 09:27 Aspirin (ASA) 162 mg DAILY ORAL 11/14/18 09:00 12/14/18 08:59 11/16/18 09:27 Atorvastatin Calcium (Lipitor) 80 mg BEDTIME ORAL 11/13/18 21:00 12/13/18 20:59 11/15/18 20:51 Diltiazem HCl (Cardizem) 10 mg Q1H PRN IV heart rate more than 160 11/13/18 17:15 12/13/18 15:14 Enalaprilat (Vasotec) 2.5 mg Q6H PRN IV sbp more than 160 11/13/18 15:15 12/13/18 15:14 Lisinopril (Zestril) 10 mg BID ORAL 11/14/18 18:00 12/14/18 17:59 11/16/18 09:28 Metoprolol Tartrate (Lopressor) 25 mg Q12HR ORAL 11/14/18 09:00 12/14/18 08:59 11/14/18 10:42 Morphine Sulfate (Morphine Sulfate) 2 mg Q4H PRN IVP severe Pain (Pain Scale 7-10) 11/13/18 15:15 11/20/18 15:14 11/14/18 05:43 Nitroglycerin (Ntg) 0.4 mg Q5M PRN SL Prn Chest Pain 11/13/18 15:15 12/13/18 15:14 Ondansetron HCl (Zofran) 4 mg Q6H PRN IVP Nausea & Vomiting 11/13/18 15:15 12/13/18 15:14 11/14/18 05:49 Pantoprazole (Protonix) 40 mg DAILY ORAL 11/14/18 09:00 12/14/18 08:59 11/16/18 09:27 Patient Own Medication (Patient's Own Med) 4 ea DAILY ORAL 11/14/18 10:00 12/14/18 09:59 11/16/18 09:28 Polyethylene Glycol (Miralax) 17 gm DAILYPRN PRN ORAL Constipation 11/13/18 15:15 12/13/18 15:14 Prednisone (predniSONE) 5 mg BID ORAL 11/14/18 09:00 12/14/18 08:59 11/16/18 09:27 Regadenoson (Lexiscan) 0.4 mg ONCE PRN IV CARDIOLOGY 11/15/18 12:19 11/16/18 12:18 Temazepam (Restoril) 15 mg HSPRN PRN ORAL Insomnia 11/13/18 15:15 11/20/18 15:14 Allergies: Coded Allergies: No Known Allergies (Unverified , 11/13/18) ROS Limited/Unobtainable: No Constitutional: Reports: no symptoms HEENT: Reports: no symptoms Cardiovascular: Reports: no symptoms Respiratory: Reports: no symptoms Gastrointestinal/Abdominal: Reports: no symptoms Genitourinary: Reports: no symptoms Neurologic/Psychiatric: Reports: no symptoms Subjective 58 YO M with stage IV prostate cancer admitted with intractable nausea/vomiting and hypertensive urgency. Cover for Int Med-Dr Quijano. ICU Objective Last Vital Signs Date Time Temp Pulse Resp B/P (MAP) Pulse Ox O2 Delivery O2 Flow Rate FiO2 11/16/18 09:28 133/83 11/16/18 09:27 67 11/16/18 08:00 Nasal Cannula 2.0 11/16/18 06:00 13 97 11/16/18 04:00 98.4 11/15/18 21:21 28 Laboratory Tests Test 11/15/18 15:00 11/16/18 04:00 Troponin I 0.097 ng/mL (0.000-0.056) White Blood Count 10.2 K/UL (4.8-10.8) Red Blood Count 3.11 M/UL (4.70-6.10) L Hemoglobin 10.2 G/DL (14.2-18.0) L Hematocrit 31.7 % (42.0-52.0) L Mean Corpuscular Volume 102 FL (80-99) H Mean Corpuscular Hemoglobin 33.0 PG (27.0-31.0) H Mean Corpuscular Hemoglobin Concent 32.3 G/DL (32.0-36.0) Red Cell Distribution Width 13.6 % (11.6-14.8) Platelet Count 178 K/UL (150-450) Mean Platelet Volume 10.8 FL (6.5-10.1) H Neutrophils (%) (Auto) 81.2 % (45.0-75.0) H Lymphocytes (%) (Auto) 10.9 % (20.0-45.0) L Monocytes (%) (Auto) 5.4 % (1.0-10.0) Eosinophils (%) (Auto) 1.3 % (0.0-3.0) Basophils (%) (Auto) 1.2 % (0.0-2.0) Sodium Level 141 MMOL/L (136-145) Potassium Level 4.4 MMOL/L (3.5-5.1) Chloride Level 107 MMOL/L (98-107) Carbon Dioxide Level 27 MMOL/L (21-32) Anion Gap 7 mmol/L (5-15) Blood Urea Nitrogen 31 mg/dL (7-18) H Creatinine 1.2 MG/DL (0.55-1.30) Estimat Glomerular Filtration Rate > 60 mL/min (>60) Glucose Level 105 MG/DL (74-106) Calcium Level 9.0 MG/DL (8.5-10.1) Microbiology Date/Time Source Procedure Growth Status 11/13/18 15:30 Nasal Nares MRSA Culture - Final Staphylococcus Aureus - Mrsa Complete Intake and Output 11/15/18 11/16/18 19:00 07:00 Intake Total 0 ml 560 ml Output Total 1190 ml 640 ml Balance -1190 ml -80 ml Intake Oral 0 ml 560 ml Output Urine Total 1190 ml 640 ml Objective PHYSICAL EXAMINATION: GENERAL: The patient is a well-developed and well-nourished male, in no apparent distress. HEENT: Eyes, pupils are equal and responsive to light and accommodation. Extraocular movements are intact. NECK: Supple without lymphadenopathy. CHEST: Lungs are clear to auscultation bilaterally without wheezes or rales. CARDIOVASCULAR: Regular rhythm and rate. S1, S2 are normal without murmurs, rubs, or gallops. ABDOMEN: Soft, diffusely tender with decreased bowel sounds. No evidence of hepatosplenomegaly. Currently, no rebound or guarding noted. EXTREMITIES: Negative for clubbing, cyanosis, or edema. RECTAL/GENITAL: Refused. NEUROLOGIC: Cranial nerves II through XII are grossly intact without focal deficits. Motor strength is 5/5 bilaterally. Deep tendon reflexes are 2+ plantar. Assessment/Plan Assessment/Plan ASSESSMENT: This is a 58-year-old male. 1. Intractable nausea and vomiting. 2. Vertigo. 3. Hypertensive urgency. 4. Elevated troponin. 5. Stage IV prostate cancer. 6. Gastroesophageal reflux. TREATMENT: 1. Intractable nausea and vomiting. The patient is currently receiving intravenous Zofran. Nausea and vomiting may be secondary to chemotherapy versus gastroenteritis. A Gastroenterology consultation has been obtained with Dr. Tc Ocampo. 2. Vertigo. This probably secondary to nausea and vomiting as above. 3. Hypertensive urgency. Continue lisinopril as above. A Cardiology consultation has been obtained with Dr. Richard Umana. 4. Elevated troponin. As above, a Cardiology consultation has been obtained with Dr. Richard Umana. Pharmacologic Cardiolite stress test scheduled 11/15/18 cancelled due to bradycardia and ICU status. Cardiolite stress test today 5. Prostate cancer. The patient is currently followed as an outpatient by . The patient is currently on Eligard intravenously q. monthly and Lupron injections q.3 months. 6. Gastroesophageal reflux disease. The patient has been started on intravenous Protonix. Raheem Fenton MD Nov 16, 2018 12:12
--- NOTE | 2018-11-16 12:13 | NUR ---
NURSE NOTES: Received orders to transfer to [facility] per Dr. Umana. Addendum: 11/16/18 at 1214 by IVORY HOOKS RN Received orders from Dr. Fenton and Dr. Umana.
--- NOTE | 2018-11-16 12:26 | NUR ---
NURSE NOTES: Patient is OK to be transferred to telemetry per Dr. Fenton.
--- NOTE | 2018-11-16 13:45 | NUR ---
NURSE NOTES: Tolerated lunch well, ate 75%. No signs of distress noted.
--- NOTE | 2018-11-16 15:04 | NUR ---
*-* INSURANCE *-* ALL CLINICALS AND REVIEWS HAVE BEEN FAXED TO: [employer].... MUSAM: KEMAL NOLAND P- [phone] F- [phone]...REVIEW/CLINICAL
--- NOTE | 2018-11-16 16:49 | NUR ---
TRANSFER TO FLOOR: Patient transferred to [facility], per Dr. Fenton. Telephone report given to RAYMON Pantoja. Patient is in stable condition. Tele instrument mechanic weapons system placed. Notified Scarlett patient has medications from home stored in pharmacy.
[2018-11-16] MEDS ORDERED: Enalaprilat 2.5mg/2ml Inj IV PRN (17:00)
[2018-11-16] MEDS ORDERED: Nitroglycerin Subl 0.4mg tab SL PRN (17:00)
[2018-11-16] MEDS ORDERED: Albuterol/Ipratropium 3ml neb HHN PRN (17:00)
[2018-11-16] MEDS ORDERED: Morphine Sulfate 2mg/ml Inj(IV/IM USE ONLY) IVP PRN (17:00)
[2018-11-16] MEDS ORDERED: dilTIAZem HCl 25mg/5ml Inj IV PRN (17:15)
--- NOTE | 2018-11-16 19:28 | NUR ---
HAND-OFF: Report given to RAYMON Leblanc. Pt is in stable condition. Sitting up in bed watching tv. Plan of care endorsed.
--- NOTE | 2018-11-16 19:30 | NUR ---
NURSE NOTES: Received report from RAYMON Pantoja. Pt is awake and resting in bed. In no acute distress. IV line intact and patent. Bed in lowest position, call light within reach. Will continue plan of care.
[2018-11-16] MEDS ORDERED: Atorvastatin 80mg tab ORAL SCH (21:00)
[2018-11-17] VITALS: BP 134/78
[2018-11-17 04:00] VITALS: BP 149/90
[2018-11-17 06:19] LABS: BASOPHILS % (AUTO) 1.1 % (0.0-2.0); EOSINOPHILS % (AUTO) 1.6 % (0.0-3.0); HEMATOCRIT 37.1 % (42.0-52.0); HEMOGLOBIN 11.6 G/DL (14.2-18.0); LYMPHOCYTES % (AUTO) 9.7 % (20.0-45.0); MEAN CORPUSCULAR VOLUME 104 FL (80-99); MONOCYTES % (AUTO) 5.5 % (1.0-10.0); NEUTROPHILS % (AUTO) 82.1 % (45.0-75.0); PLATELET COUNT 169 K/UL (150-450); RED BLOOD COUNT 3.57 M/UL (4.70-6.10); WHITE BLOOD COUNT 10.3 K/UL (4.8-10.8)
[2018-11-17 06:57] LABS: ANION GAP 9 mmol/L (5-15); BLOOD UREA NITROGEN 37 mg/dL (7-18); CALCIUM 9.4 MG/DL (8.5-10.1); CARBON DIOXIDE 26 MMOL/L (21-32); CHLORIDE 107 MMOL/L (98-107); CREATININE 1.1 MG/DL (0.55-1.30); POTASSIUM 4.7 MMOL/L (3.5-5.1); SODIUM 142 MMOL/L (136-145)
--- NOTE | 2018-11-17 07:26 | NUR ---
HAND-OFF: Report given to RAYMON Vides.
[2018-11-17 08:00] VITALS: BP 130/95
--- NOTE | 2018-11-17 08:00 | NUR ---
NURSE NOTES: received pt in the bed, awake, confused, vital signs stable, no co pain, no SOB, skin warm an dry to touch, intact, in the room, tolerate diet well, bed in low position, call light within reach.
[2018-11-17] MEDS: Lisinopril 10mg tab ORAL SCH ×2 (09:00→17:48)
[2018-11-17] MEDS ORDERED: Aspirin Baby 81mg ORAL SCH (09:00)
[2018-11-17] MEDS: Metoprolol 25mg tab ORAL SCH (09:00)
[2018-11-17] MEDS ORDERED: ABIRATERONE 250 MG ORAL SCH (09:00)
--- NOTE | 2018-11-17 10:58 | NUR ---
NURSE NOTES: received pt in the bed, awake, alert, oriented, ambulatory,no co pain, no SOB, skin warm and dry to touch, pt NPO for Lexiscan test, bed in low position, call light within reach.
[2018-11-17 12:00] VITALS: BP 133/94
[2018-11-17] MEDS ORDERED: Lexiscan 0.4mg/5ml syringe IV PRN (12:02)
--- NOTE | 2018-11-17 12:03 | NUR ---
NM Myocardial Perfusion scan complete.
--- NOTE | 2018-11-17 12:55 | Diagnostic Imaging Report ---
Indication: chest pain Technique: The study was conducted under the supervision of a straight line press setter. lexiscan (regadenoson) infusion over 10 seconds followed by intravenous administration of 30.1 mCi of technetium 99m Myoview was performed. Three plane SPECT imaging of the heart was then performed. A resting study was performed as part of the one-day protocol with 10.6 mCi of technetium 99m myoview injected intravenously at that time. Three plane SPECT imaging of the heart was obtained. Comparison: None Clinical data: 1. Clinical response: Non ischemic 2. Electrocardiographic response: Non ischemic Findings: The myocardial perfusion scan demonstrates no fixed or reversible perfusion defects. LVEF estimated at 59%. IMPRESSION: Negative myocardial perfusion scan
--- NOTE | 2018-11-17 13:15 | GI Progress Note ---
Assessment/Plan Problems: (1) Nausea & vomiting ICD Codes: R11.2 - Nausea with vomiting, unspecified SNOMED: 64741634 (2) Hypertensive urgency, malignant ICD Codes: I16.0 - Hypertensive urgency SNOMED: 389080355 (3) Elevated troponin ICD Codes: R74.8 - Abnormal levels of other serum enzymes SNOMED: 782941946, 523496845, 224568960 (4) Chemotherapy adverse reaction ICD Codes: T45.1X5A - Adverse effect of antineoplastic and immunosuppressive drugs, initial encounter SNOMED: 532327769 Qualifiers: Qualified Codes: T45.1X5A - Adverse effect of antineoplastic and immunosuppressive drugs, initial encounter Status: stable Status Narrative Discussed with Dr. Ocampo. Assessment/Plan okay for DC per GI standpoint Nausea vomiting most likely due to hypertensive crisis versus chemo drug induced >>> resolved. We will consider endoscopy if patient has persistent nausea and vomiting>> and if cleared by cardiology Continue Zofran as needed, add Reglan as needed for persistent vomiting OB stool r/o GI bleed >> negative monitor H&H, prn transfusions bowel regimen ppi fu labs Follow-up cardiac recommendations>>> Stress test today The patient was seen and examined at bedside and all new and available data was reviewed in the patients chart. I agree with the above findings, impression and plan. (Patient seen earlier today. Signature stamp does not reflect patient encounter time.). - Tc Ocampo MD Subjective Gastrointestinal/Abdominal: Reports: no symptoms Objective Last 24 Hour Vital Signs Date Time Temp Pulse Resp B/P (MAP) Pulse Ox O2 Delivery O2 Flow Rate FiO2 11/17/18 12:00 97.5 83 20 133/94 (107) 97 11/17/18 09:23 61 130/95 11/17/18 09:00 Room Air 11/17/18 09:00 83 133/94 11/17/18 09:00 133/94 11/17/18 08:00 63 11/17/18 08:00 98.1 61 18 130/95 (107) 97 11/17/18 04:00 97.9 61 18 149/90 (109) 97 11/17/18 04:00 61 11/17/18 00:00 98.0 59 18 134/78 (96) 95 11/17/18 00:00 59 11/16/18 21:00 Room Air 11/16/18 20:58 74 141/89 11/16/18 20:00 80 11/16/18 20:00 97.4 80 18 141/89 (106) 95 11/16/18 17:55 104/58 11/16/18 16:00 78 11/16/18 16:00 75 15 125/80 (95) 98 11/16/18 16:00 Room Air 11/16/18 15:00 78 13 129/83 (98) 97 11/16/18 14:00 78 13 129/83 (98) 97 Intake and Output 11/16/18 11/17/18 19:00 07:00 Intake Total 260 ml Output Total 200 ml Balance 60 ml Intake Oral 260 ml Output Urine Total 200 ml # Voids 4 2 Laboratory Tests Test 11/17/18 05:35 White Blood Count 10.3 K/UL (4.8-10.8) Red Blood Count 3.57 M/UL (4.70-6.10) L Hemoglobin 11.6 G/DL (14.2-18.0) L Hematocrit 37.1 % (42.0-52.0) L Mean Corpuscular Volume 104 FL (80-99) H Mean Corpuscular Hemoglobin 32.4 PG (27.0-31.0) H Mean Corpuscular Hemoglobin Concent 31.2 G/DL (32.0-36.0) L Red Cell Distribution Width 14.0 % (11.6-14.8) Platelet Count 169 K/UL (150-450) Mean Platelet Volume 10.8 FL (6.5-10.1) H Neutrophils (%) (Auto) 82.1 % (45.0-75.0) H Lymphocytes (%) (Auto) 9.7 % (20.0-45.0) L Monocytes (%) (Auto) 5.5 % (1.0-10.0) Eosinophils (%) (Auto) 1.6 % (0.0-3.0) Basophils (%) (Auto) 1.1 % (0.0-2.0) Sodium Level 142 MMOL/L (136-145) Potassium Level 4.7 MMOL/L (3.5-5.1) Chloride Level 107 MMOL/L (98-107) Carbon Dioxide Level 26 MMOL/L (21-32) Anion Gap 9 mmol/L (5-15) Blood Urea Nitrogen 37 mg/dL (7-18) H Creatinine 1.1 MG/DL (0.55-1.30) Estimat Glomerular Filtration Rate > 60 mL/min (>60) Glucose Level 99 MG/DL (74-106) Calcium Level 9.4 MG/DL (8.5-10.1) Height (Feet): 5 Height (Inches): 11.00 Weight (Pounds): 152 General Appearance: WD/WN, no apparent distress, alert Cardiovascular: normal rate Respiratory/Chest: normal breath sounds, no respiratory distress Abdominal Exam: normal bowel sounds, non tender, soft Extremities: normal range of motion, non-tender Janeen Del Toro NP Nov 17, 2018 13:15
--- NOTE | 2018-11-17 14:47 | NUR ---
NURSE NOTES: Lexiscan test done, negative, non ischemic, dr. Umana notified, clear from cardiology to discharge home.
[2018-11-17 16:00] VITALS: BP 131/86
--- NOTE | 2018-11-17 16:09 | NUR ---
*-* INSURANCE *-* UPDATED CLINICALS HAVE BEEN FAXED TO: [employer].... MUSAM: KEMAL NOLAND P- [phone] F- [phone]...REVIEW/CLINICAL
--- NOTE | 2018-11-17 16:48 | Internal Med Progress Note ---
Subjective Date of Service: Nov 17, 2018 Physician Name Raheem Fenton Attending Physician Davonte Quijano MD Current Medications Medications (Trade) Dose Ordered Sig/Pancho Route PRN Reason Start Time Stop Time Status Last Admin Dose Admin Acetaminophen (Tylenol) 650 mg Q4H PRN ORAL T>100.5 11/16/18 17:00 12/13/18 16:59 Albuterol/ Ipratropium (Albuterol/ Ipratropium) 3 ml Q4H PRN HHN Shortness of Breath 11/16/18 17:00 11/18/18 16:59 Amlodipine Besylate (Norvasc) 5 mg DAILY ORAL 11/17/18 09:00 12/14/18 12:29 11/17/18 09:23 Aspirin (ASA) 162 mg DAILY ORAL 11/17/18 09:00 12/14/18 08:59 11/17/18 09:22 Atorvastatin Calcium (Lipitor) 80 mg BEDTIME ORAL 11/16/18 21:00 12/13/18 20:59 11/16/18 20:57 Diltiazem HCl (Cardizem) 10 mg Q1H PRN IV HR more than 160 bpm 11/16/18 17:15 12/13/18 15:14 Enalaprilat (Vasotec) 2.5 mg Q6H PRN IV sbp more than 160mmHg 11/16/18 17:00 12/13/18 16:59 Lisinopril (Zestril) 10 mg BID ORAL 11/16/18 18:00 12/14/18 17:59 Metoprolol Tartrate (Lopressor) 25 mg Q12HR ORAL 11/16/18 21:00 12/14/18 08:59 11/16/18 20:58 Morphine Sulfate (Morphine Sulfate) 2 mg Q4H PRN IVP severe Pain (Pain Scale 7-10) 11/16/18 17:00 11/20/18 16:59 Nitroglycerin (Ntg) 0.4 mg Q5M PRN SL Prn Chest Pain 11/16/18 17:00 12/13/18 15:14 Ondansetron HCl (Zofran) 4 mg Q6H PRN IVP Nausea & Vomiting 11/16/18 17:00 12/13/18 16:59 Pantoprazole (Protonix) 40 mg DAILY ORAL 11/17/18 09:00 12/14/18 08:59 11/17/18 09:22 Patient Own Medication (Patient's Own Med) 4 ea DAILY ORAL 11/17/18 09:00 12/17/18 08:59 11/17/18 09:23 Polyethylene Glycol (Miralax) 17 gm DAILYPRN PRN ORAL Constipation 11/17/18 17:00 12/13/18 16:59 Prednisone (predniSONE) 5 mg Q12HR ORAL 11/16/18 21:00 12/16/18 20:59 11/17/18 09:23 Regadenoson (Lexiscan) 0.4 mg ONCE PRN IV CARDIOLOGY 11/17/18 12:02 11/17/18 23:59 11/17/18 12:03 Temazepam (Restoril) 15 mg HSPRN PRN ORAL Insomnia 11/17/18 21:00 11/20/18 20:59 Allergies: Coded Allergies: No Known Allergies (Unverified , 11/13/18) ROS Limited/Unobtainable: No Constitutional: Reports: no symptoms HEENT: Reports: no symptoms Cardiovascular: Reports: no symptoms Respiratory: Reports: no symptoms Gastrointestinal/Abdominal: Reports: no symptoms Genitourinary: Reports: no symptoms Neurologic/Psychiatric: Reports: no symptoms Subjective 58 YO M with stage IV prostate cancer admitted with intractable nausea/vomiting and hypertensive urgency. Cover for Int Med-Dr Quijano. Objective Last Vital Signs Date Time Temp Pulse Resp B/P (MAP) Pulse Ox O2 Delivery O2 Flow Rate FiO2 11/17/18 16:00 65 11/17/18 16:00 98.6 20 131/86 (101) 96 11/17/18 13:13 Room Air 21 11/16/18 12:00 2.0 Laboratory Tests Test 11/17/18 05:35 White Blood Count 10.3 K/UL (4.8-10.8) Red Blood Count 3.57 M/UL (4.70-6.10) L Hemoglobin 11.6 G/DL (14.2-18.0) L Hematocrit 37.1 % (42.0-52.0) L Mean Corpuscular Volume 104 FL (80-99) H Mean Corpuscular Hemoglobin 32.4 PG (27.0-31.0) H Mean Corpuscular Hemoglobin Concent 31.2 G/DL (32.0-36.0) L Red Cell Distribution Width 14.0 % (11.6-14.8) Platelet Count 169 K/UL (150-450) Mean Platelet Volume 10.8 FL (6.5-10.1) H Neutrophils (%) (Auto) 82.1 % (45.0-75.0) H Lymphocytes (%) (Auto) 9.7 % (20.0-45.0) L Monocytes (%) (Auto) 5.5 % (1.0-10.0) Eosinophils (%) (Auto) 1.6 % (0.0-3.0) Basophils (%) (Auto) 1.1 % (0.0-2.0) Sodium Level 142 MMOL/L (136-145) Potassium Level 4.7 MMOL/L (3.5-5.1) Chloride Level 107 MMOL/L (98-107) Carbon Dioxide Level 26 MMOL/L (21-32) Anion Gap 9 mmol/L (5-15) Blood Urea Nitrogen 37 mg/dL (7-18) H Creatinine 1.1 MG/DL (0.55-1.30) Estimat Glomerular Filtration Rate > 60 mL/min (>60) Glucose Level 99 MG/DL (74-106) Calcium Level 9.4 MG/DL (8.5-10.1) Intake and Output 11/16/18 11/17/18 19:00 07:00 Intake Total 260 ml Output Total 200 ml Balance 60 ml Intake Oral 260 ml Output Urine Total 200 ml # Voids 4 2 Objective PHYSICAL EXAMINATION: GENERAL: The patient is a well-developed and well-nourished male, in no apparent distress. HEENT: Eyes, pupils are equal and responsive to light and accommodation. Extraocular movements are intact. NECK: Supple without lymphadenopathy. CHEST: Lungs are clear to auscultation bilaterally without wheezes or rales. CARDIOVASCULAR: Regular rhythm and rate. S1, S2 are normal without murmurs, rubs, or gallops. ABDOMEN: Soft, diffusely tender with decreased bowel sounds. No evidence of hepatosplenomegaly. Currently, no rebound or guarding noted. EXTREMITIES: Negative for clubbing, cyanosis, or edema. RECTAL/GENITAL: Refused. NEUROLOGIC: Cranial nerves II through XII are grossly intact without focal deficits. Motor strength is 5/5 bilaterally. Deep tendon reflexes are 2+ plantar. Assessment/Plan Assessment/Plan ASSESSMENT: This is a 58-year-old male. 1. Intractable nausea and vomiting. 2. Vertigo. 3. Hypertensive urgency. 4. Elevated troponin. 5. Stage IV prostate cancer. 6. Gastroesophageal reflux. TREATMENT: 1. Intractable nausea and vomiting. The patient is currently receiving intravenous Zofran. Nausea and vomiting may be secondary to chemotherapy versus gastroenteritis. A Gastroenterology consultation has been obtained with Dr. Tc Ocampo. 2. Vertigo. This probably secondary to nausea and vomiting as above. 3. Hypertensive urgency. Continue lisinopril as above. A Cardiology consultation has been obtained with Dr. Richard Umana. 4. Elevated troponin. As above, a Cardiology consultation has been obtained with Dr. Richard Umana. Nuclear med myocardia perfusion scan 11/17/18=non ischemic 5. Prostate cancer. The patient is currently followed as an outpatient by . The patient is currently on Eligard intravenously q. monthly and Lupron injections q.3 months. 6. Gastroesophageal reflux disease. The patient has been started on intravenous Protonix. 7. D/C home today; F/U Dr Quijano in 1 week Raheem Fenton MD Nov 17, 2018 16:48
[2018-11-17] MEDS ORDERED: Miralax 17gm pkt ORAL PRN (17:00)
[2018-11-17 17:48] VITALS: BP 131/86
--- NOTE | 2018-11-17 18:34 | NUR ---
NURSE NOTES: rt discharge home as ordered, condition stable, discharge instruction given, RX given.
--- NOTE | 2018-11-17 18:59 | Cardiology Progress Note ---
Assessment/Plan Assessment/Plan 1. Hypertension, well controlled, continue amlodipine, metoprolol and lisinopril. Daily prednisone therapy can attribute to hypertension. 2. Slight elevation of troponin I level possible diagnosis could be LV strain with hypertensive crisis or sepsis, noninvasive nuclear stress test is non- ischemic. 3. Atrial arrhythmias, continue metoprolol. 2D echocardiography shows normal LV systolic function with LVEF at 60%. Subjective Subjective Sinus rhythm at rate of 65. Objective Last 24 Hour Vital Signs Date Time Temp Pulse Resp B/P (MAP) Pulse Ox O2 Delivery O2 Flow Rate FiO2 11/17/18 17:48 131/86 11/17/18 16:00 65 11/17/18 16:00 98.6 82 20 131/86 (101) 96 11/17/18 13:13 68 18 97 Room Air 21 11/17/18 13:13 97 Room Air 21 11/17/18 12:00 73 11/17/18 12:00 97.5 83 20 133/94 (107) 97 11/17/18 09:23 61 130/95 11/17/18 09:00 Room Air 11/17/18 09:00 83 133/94 11/17/18 09:00 133/94 11/17/18 08:00 63 11/17/18 08:00 98.1 61 18 130/95 (107) 97 11/17/18 04:00 97.9 61 18 149/90 (109) 97 11/17/18 04:00 61 11/17/18 00:00 98.0 59 18 134/78 (96) 95 11/17/18 00:00 59 11/16/18 21:00 Room Air 11/16/18 20:58 74 141/89 11/16/18 20:00 80 11/16/18 20:00 97.4 80 18 141/89 (106) 95 Intake and Output 11/16/18 11/17/18 19:00 07:00 Intake Total 260 ml Output Total 200 ml Balance 60 ml Intake Oral 260 ml Output Urine Total 200 ml # Voids 4 2 2D Echo: LVEF 60%, Mild LVH, Mild LAE, Grade I LVDD, RVSP 27 mmHg Laboratory Tests Test 11/17/18 05:35 White Blood Count 10.3 K/UL (4.8-10.8) Red Blood Count 3.57 M/UL (4.70-6.10) L Hemoglobin 11.6 G/DL (14.2-18.0) L Hematocrit 37.1 % (42.0-52.0) L Mean Corpuscular Volume 104 FL (80-99) H Mean Corpuscular Hemoglobin 32.4 PG (27.0-31.0) H Mean Corpuscular Hemoglobin Concent 31.2 G/DL (32.0-36.0) L Red Cell Distribution Width 14.0 % (11.6-14.8) Platelet Count 169 K/UL (150-450) Mean Platelet Volume 10.8 FL (6.5-10.1) H Neutrophils (%) (Auto) 82.1 % (45.0-75.0) H Lymphocytes (%) (Auto) 9.7 % (20.0-45.0) L Monocytes (%) (Auto) 5.5 % (1.0-10.0) Eosinophils (%) (Auto) 1.6 % (0.0-3.0) Basophils (%) (Auto) 1.1 % (0.0-2.0) Sodium Level 142 MMOL/L (136-145) Potassium Level 4.7 MMOL/L (3.5-5.1) Chloride Level 107 MMOL/L (98-107) Carbon Dioxide Level 26 MMOL/L (21-32) Anion Gap 9 mmol/L (5-15) Blood Urea Nitrogen 37 mg/dL (7-18) H Creatinine 1.1 MG/DL (0.55-1.30) Estimat Glomerular Filtration Rate > 60 mL/min (>60) Glucose Level 99 MG/DL (74-106) Calcium Level 9.4 MG/DL (8.5-10.1) Objective HEENT: Atraumatic and normocephalic. Anicteric. Pupils are equal, round, and reactive to light and accommodation. Extraocular muscles intact. NECK: JVP less than 5 cm. No carotid bruit. Carotid upstroke is 2+ bilaterally. CVS: Normal S1 and S2. Regular rate and rhythm. No murmurs, gallops, or rubs. PMI is at fourth intercostal space in the midclavicular line. LUNGS: Clear to auscultation bilaterally. ABDOMEN: Soft, nontender, and nondistended. No hepatosplenomegaly. Positive bowel sounds. EXTREMITIES: No evidence of edema, clubbing, or cyanosis. Richard Umana MD Nov 17, 2018 18:59
--- NOTE | 2018-11-18 10:41 | NUR ---
*-* INSURANCE *-* UPDATED CLINICALS HAVE BEEN FAXED TO: [employer].... MUSAM: KEMAL NOLAND P- [phone] F- [phone]...REVIEW/CLINICAL
--- NOTE | 2018-11-18 13:23 | Discharge Summary ---
Discharge Summary Discharge Summary _ DATE OF ADMISSION: 11/13/2018 DATE OF DISCHARGE: 11/17/2018 DISCHARGED BY: Dr. Fenton REASON FOR ADMISSION: 58 years old male with past medical history of prostate cancer and hypertension , presented to emergency department with complaint of mid chest pain and nausea. Patient on oral chemotherapy for the past year. Patient felt lightheaded and dizzy and reported feeling weak. He denied headache or visual changes. Last chemotherapy was 7 days ago. Upon evaluation vital signs revealed elevated blood pressure 170/100. Laboratory work-up revealed no leukocytosis , hemoglobin 10.1, hematocrit 32.7, platelet count 214. Stable electrolytes. BUN 35 creatinine 1.2. Glucose 182. Total bilirubin 1.4 , direct bilirubin 0.4 , AST 43 , ALT 42, lipase 170. Troponin -0.154. Urine toxicology screen was negative. Urinalysis revealed +3 protein, +2 glucose, +2 blood, no pyuria , occasional bacteria. Chest x-ray demonstrated pulmonary nodules and /or old rib fracture bilaterally. CT of the head demonstrated no acute intracranial pathology. Patient subsequently admitted for further management to telemetry floor. CONSULTANTS: order worker Dr. Umana GI specialist Dr. Ocampo [facility] COURSE: Patient admitted to telemetry floor. Troponin trended; started to trend down slowly , last troponin 0 0.097. Extension Service Agent closely followed. Echocardiogram demonstrated preserved ejection fraction of 60% with mild left ventricular hypertrophy. No evidence of pericardial effusion. No evidence of wall motion abnormality. Right ventricular systolic pressure 27. Patient subsequently undergone myocardial perfusion scan, which was nonischemic with calculated ejection fraction of 59%. Antiplatelet therapy with aspirin and statin were continued. Blood pressure was managed with multiply regimen of antihypertensive medications, including calcium channel jami, beta-jami and OLIVIA inhibitor. Blood pressure stabilized. Pain management was addressed with nitroglycerin and morphine as needed. Supplemental oxygen provided as needed to keep pulse oximetry above 92%. Pulmonary toilet via handheld nebulizer provided as needed. Hypertensive crisis resolved ; prior to discharge blood pressure 131/86. Daily dose of the prednisone therapy could also contributed to hypertension as per order worker. Slight elevation of troponin was possibly due to LV strain , secondary to hypertensive crisis or type II NSTEMI , no evidence of obstructive coronary artery disease. GI specialist followed. Nausea and vomiting were most likely due to hypertensive crisis versus chemo drug induced and resolved with symptomatic treatment. GI specialist recommended to consider endoscopy only if patient had persistent nausea and vomiting and if cleared by order worker . At this time symptomatic treatment with Zofran as needed provided. Reglan was added for persistent vomiting. Stool for occult blood was negative. Patient was able to tolerate diet. Nausea and vomiting resolved with symptomatic treatment. Hemoglobin and hematocrit remained stable. Bowel regimen instituted. GI prophylaxis provided. Blood pressure stabilized . No further nausea and vomiting. Patient clinically stabilized and was ready for discharge home. FINAL DIAGNOSES: Hypertensive urgency, malignant -resolved Elevated troponin, likely due to LV strain with hypertensive crisis Possible NSTEMI Stage 4 prostate cancer Chemotherapy adverse reaction GERD Nausea and vomiting -resolved (possibly due to hypertensive urgency versus chemotherapy adverse reaction) Vertigo- resolved ( likely due to hypertensive urgency) DISCHARGE MEDICATIONS: See Medication Reconciliation list. DISCHARGE INSTRUCTIONS: Patient was discharged home . Follow up with primary care provider in one week. I have been assigned to dictate discharge summary for this account. I was not involved in the patient's management. Clara Maynard NP Nov 18, 2018 13:23
== END 2018-11-17 18:38 | disposition home or self-care (01) | DRG 199 ==
LOC: EDBD 11:36 → EMR 12:57 → EDBEDREQ 13:15 → ICU 14:46 → EDBEDREQ 15:04 → 2E 11-16 16:45
DX: I16.0 Hypertensive urgency (principal); I21.4 Non-ST elevation (NSTEMI) myocardial infarction; T45.1X5A Adverse effect of antineoplastic and immunosuppressive drugs, initial encounter; K21.9 Gastro-esophageal reflux disease without esophagitis; K52.9 Noninfective gastroenteritis and colitis, unspecified; R42 Dizziness and giddiness; C61 Malignant neoplasm of prostate; Z85.46 Personal history of malignant neoplasm of prostate; C79.9 Secondary malignant neoplasm of unspecified site; I10 Essential (primary) hypertension; R11.2 Nausea with vomiting, unspecified; Z90.79 Acquired absence of other genital organ(s); Z79.899 Other long term (current) drug therapy; I49.8 Other specified cardiac arrhythmias
CPT/HCPCS: 36415; 70450; 71045; 78452; 80048; 80053; 80061; 80307; 81003; 82248; 82270; 82550; 82553; 82607; 82728; 82746; 83540; 83550; 83690; 83735; 84100; 84439; 84443; 84484; 84550; 85025; 85044; 85610; 85730; 86140; 87081; 93005; 93017; 93306; 94664; 96361; 96374; 96375; 99291; J2405; J2785